=== PATIENT | female | born 1980 | race Caucasian/White ===

== ENCOUNTER 2017-01-08 07:19 | Day surgery (SDC) | payer OTHER ==
[2017-01-08] VITALS (17 sets, daily range): BP systolic 71–110; BP diastolic 44–68; PULSE 68–95; RESP 16–19; TEMP 98–98.5; O2SAT 97–98
[~2017-01-08] VITALS: Ht 165.1 cm; Wt 65.5 kg
[2017-01-08] MEDS ORDERED: METOPROLOL TARTRATE 25 MG TAB PO PRN (07:45)
[2017-01-08] MEDS ORDERED: LORazepam 1 MG TAB SL SCH (07:45)
[2017-01-08] MEDS ORDERED: SODIUM CHLORID 0.9% 500 ML IV PRN (07:45)
[2017-01-08] MEDS ORDERED: CHLORHEXIDINE GLUCONATE 2 % 1 PACK (2 CLOTHS) TOPICAL PRN (07:45)
[2017-01-08] MEDS ORDERED: POVIDONE IODINE 5% (ANTISEPSIS KIT) 4 APPLICATIONS EACH NARE PRN (07:45)
[2017-01-08] MEDS ORDERED: LACTATED RINGER'S 1000 ML IV PRN (07:45)
[2017-01-08] MEDS ORDERED: INSULIN HUMAN REGULAR 1,000 UNITS/10 ML VIAL SQ PRN (07:45)
[2017-01-08] MEDS: SODIUM CHLORID 0.9% 500 ML INJ 500 ML IV SCH (07:45)
[2017-01-08 08:15] LABS: AUTOMATED NEUTROPHIL # 3.6 TH/MM3 (1.8-7.7); BASOPHIL # 0.1 TH/MM3 (0-0.2); BASOPHIL % 1.1 % (0.0-2.0); EOSINOPHIL # 0.5 TH/MM3 (0-0.4); EOSINOPHIL % 7.2 % (0.0-4.0); HEMATOCRIT 36.4 % (35.0-46.0); HEMO FLAGS DIFF FINAL; LYMPH % 29.4 % (9.0-44.0); MEAN CORPUSCULAR HEMOGLOBIN 27.6 PG (27.0-34.0); MEAN CORPUSCULAR HGB CONC 32.8 % (32.0-36.0); MONO % 8.1 % (0.0-8.0); NEUT % 54.2 % (16.0-70.0); PLATELET COUNT 317 TH/MM3 (150-450); RED BLOOD COUNT 4.33 MIL/MM3 (4.00-5.30); RED CELL DISTRIBUTION WIDTH 12.5 % (11.6-17.2); WHITE BLOOD COUNT 6.7 TH/MM3 (4.0-11.0)
[2017-01-08] MEDS ORDERED: NORE1TAB57 PO (08:20)
[2017-01-08] MEDS ORDERED: ESCI10TA PO (08:20)
[2017-01-08] MEDS ORDERED: METO25TA6 PO (08:20)
[2017-01-08] MEDS ORDERED: CLON0.5T PO (08:20)
[2017-01-08 08:22] LABS: APTT (PATIENT) 27.1 SEC (24.3-30.1); INTERNATIONAL NORMALIZED RATIO 0.9 RATIO; PROTHROMBIN TIME - PATIENT 10.2 SEC (9.8-11.6)
[2017-01-08 08:29] LABS: BICARBONATE 26.7 MEQ/L (21.0-32.0); POTASSIUM 3.9 MEQ/L (3.5-5.1)
[2017-01-08 08:33] LABS: BETA HCG QUANT LESS THAN 1 MIU/ML (0-5)
[2017-01-08] MEDS ORDERED: ISOPROTERENOL HCL 1 MG/5 ML AMP ONE (09:07)
[2017-01-08] MEDS ORDERED: MIDAZOLAM HCL 2 MG/2 ML VIAL ONE (09:07)
[2017-01-08] MEDS ORDERED: HEPARIN-NS/PF INJ 1,000 ML ONE (09:20)
[2017-01-08] MEDS ORDERED: HEPARIN SODIUM - IV 10,000 UNITS/10 ML VIAL ONE (10:07)
[2017-01-08] MEDS ORDERED: PROTAMINE SULFATE 50 MG/5 ML VIAL ONE (11:25)
--- NOTE | 2017-01-08 11:50 | CATHPROC ---
[facility] HIS Report Study Information Study Number Admission Scheduled Start Study Start [id number] Jan 08 2017 7:19AM 01/08/2017 Jan 08 2017 9:04AM [facility] Electrophysiology Study Admit Source Facility Department Other [facility] - Teaching Fellow Physician and Clinical Staff Initial Radha Morales Dressmaking Teacher Liz Snow RCIS Other Anesthesia, ACADEMIC DEAN Recorder Jo Ann Thompson,RN Recorder Sara Caldera,BSRN Scrub Giovanni Huff,RT(R) Procedures Performed Procedure Location (Site) Vessel Name Ablation Procedure ICE CATHETER INSERT RA Atruim RF Ablation LT. ATRIUM LT. ATRIUM Equipment Time Dry Box Operator Description Size Mfg Part Number Used/Scraped BIOSENSE SCHAFFER CATHETER, CELSIUS, 4MM, C [id number] 10:14 FR 7 Used INC. TYPE QUAD *[id number] [employer]/ EP 10:04 KIT, TRANSDUCER / AFIB [id number] Used PACER COVER, TRANSDUCER CABLE 10:05 [employer] 612-113 Used ACUNAV 10:18 CORDIS/PACER SHEATH, FR10 CLARENCE 11CM FR 10 [id number] Used 11:18 CORDIS/PACER SHEATH, FR9 CLARENCE 11CM FR 9 [id number] Used [id number] 09:05 Planwise INDUSTRIES PACK, CCL CUSTOM * Used *[id number] 09:05 Planwise PACER CARO, LIMB * 2530 *[id number] Used [id number] 10:13 get2play MEDICAL SHEATH, FR4.5 PRELUDE 11CM FR 4.5 Used [id number] 10:07 NAMIC TUBING, HIGH PRESSURE 48" 48" Used *[id number] 10:08 NAMIC TUBING, HIGH PRESSURE 48" 48" Used *[id number] 09:05 RO MEDICAL BLANKET,WARM AIR CCL * Used *[id number] 09:07 [employer] MEDICAL CATHETER, JSN, QUAD FR 5 Used *[id number] [id number] 09:07 [employer] MEDICAL CATHETER, JSN, QUAD FR 5 Used *[id number] 196619 09:07 [employer] MEDICAL CATHETER, JSN, QUAD FR 5 Used *[id number] 09:07 [employer] MEDICAL CATHETER, JSN, QUAD FR 5 Used *[id number] 09:05 [facility] MEDICAL ELECTRODE KIT, SHANNON X SURFACE * [id number] Used [id number] 09:07 [employer] MEDICAL SHEATH, EPS, FR5 FAST CATH FR 5 Used *[id number] 09:07 [employer] MEDICAL SHEATH, EPS, FR5 FAST CATH FR 5 Used *[id number] 544759 09:07 [facility] MEDICAL SHEATH, EPS, FR5 FAST CATH FR 5 Used *[id number] 09:07 [employer] MEDICAL SHEATH, EPS, FR6 FAST CATH FR [address] [id number] Used 09:07 [facility] MEDICAL SHEATH, EPS, FR8 FAST CATH FR 8 [id number] Used SHEATH, FR8.5 STEERABLE SM 10:16 [facility] B[employer] MEDICAL 71CM [id number] Used 71CM CATHETER, ACUNAV FR10 ICE [id number] 10:03 FRANKI FR 10 Used (FRANKI) *[id number] [facility] PAD, ELECTROSURGICAL 09:05 * [id number] *[id number] Used SURGICAL GROUNDING (BLUE) History: Current Medications Medication Dosage/Unit Route Frequency Last Date/Time Taken LOPRESSOR History: Allergies Allergy Reaction cephalexin History: Symptoms/Diagnosis Selection Items Palpitations Labs Hgb (g/dl) Hct (%) RBC (MIL/MM3) WBC (l/cumm) Platelets (thousands) 11.60-17.00 35.00-51.00 4.00-5.90 4.00-11.00 150.00-450.00 11.9 36.4 4.3 6.7 317 Glucose (mg/dl) BUN (mg/dl) Creatinine (mg/dl) BUN:Creatinine (1:x) 74.00-106.00 7.00-18.00 0.50-1.30 10.00-20.00 83 15 0.9 16.7 Na (meq/l) K (meq/l) Cl (meq/l) CO2 (mmol/L) Ca (mg/dl) 136.00-145.00 3.50-5.10 98.00-107.00 21.00-32.00 8.50-10.10 142 3.9 106 26.7 8.8 INR (PTT:PT) 0.90-1.10 0.9 Medication Medication Total Dose (Bolus/Oral) Medication Total Dosage/Unit 1% XYLOCAINE 40 mL HEPARIN 6000 units PROTAMINE 20 mg Medications (Bolus/Oral) Medication Time Given Dosage/Unit Administered By Reason 1% XYLOCAINE 01/08/2017 9:41:57 AM 20 mL Radha Davila For pain 20 mL 1% XYLOCAINE given in lab by Radha Davila in Right Groin via Subcutaneous. Ordered by Mic Davila. Reason: For pain. 1% XYLOCAINE 01/08/2017 9:51:14 AM 20 mL Radha Davial As per physicians lili bal order 20 mL 1% XYLOCAINE given in lab by Radha Davila in Right Groin via Subcutaneous. Ordered by Mic Davila. Reason: As per physicians verbal order. HEPARIN 01/08/2017 10:21:03 AM 6000 units Anesthesia, ACADEMIC DEAN As per physicians ve rbal order 6000 units HEPARIN given in lab by Anesthesia, ACADEMIC DEAN in Right Antecubital via Peripheral IV. Ordered b y Radha Davila. Reason: As per physicians verbal order. PROTAMINE 01/08/2017 11:28:13 AM 20 mg Anesthesia, ACADEMIC DEAN As per physicians lili bal order 20 mg PROTAMINE given in lab by Anesthesia, ACADEMIC DEAN in Right Antecubital via Peripheral IV. Ordered by Radha Jasmine. Reason: As per physicians verbal order. Medication (Drip) Medication Time Given Dosage/Unit Concentration/Unit Diluent (ml) Solution ISUPREL 01/08/2017 11:03:32 AM 2 mcg/min 1 mg 250 NaCl .9 2 mcg/min ISUPREL given in lab by Anesthesia, ACADEMIC DEAN in Right Antecubital via Peripheral IV. Pump/Drip Flow = 30 ml/hr using NaCl .9 with a concentration of 1 mg in 250 ml. Ordered by Radha Davila. Reason: As per physicians verbal order. IV Solutions 01/08/2017 9:17:46 AM 0 mL (IV) NaCl .9 IV Solutions given in lab by Jo Ann Thompson RN in Left Antecubital via Peripheral IV. Pump/Drip Fl ow = 50 ml/hr using NaCl .9. Ordered by Radha Davila. Reason: As per physicians verbal order. IV Solutions 01/08/2017 9:18:10 AM 0 mL (IV) NaCl .9 IV Solutions given in lab by Jo Ann Thompson RN in Right Antecubital via Peripheral IV. Pump/Drip F low = 50 ml/hr using NaCl .9. Ordered by Radha Davila. Reason: As per physicians verbal order. Initial Case Assessment Cardiovascular HR NIBP 62 109/62 Edema Present Skin color Skin None Normal Warm Dry Neurological State Oriented to time-place- Alert Moves all extremities person Respiration - General Respiration Rate SpO2 (%) (B/min) 18 100 Final Case Assessment Cardiovascular HR NIBP Chest Pain 80 107/60 0 Edema Present Skin color Skin None Normal Warm Dry Neurological State Oriented to time-place- Alert Moves all extremities person Respiration - General Respiration Rate SpO2 (%) (B/min) 20 99 Chronological Log Time Study Chronological Log 9:09:47 Patient arrived via Bed. 9:09:50 Patient Name, D.O.B, / Armband Verified By R.N. 9:09:53 Consent signed by the physician and the patient and verified by the Teaching Fellow staff. 9:09:56 Pre-op and post- op instructions given; patient acknowledges understanding of instructions . Assessment: Initial Case, HR=62 BPM, JRVS=570/62 mmhg, Edema=None, Color=Normal, Skin = Warm, Dry 9:15:00 Neurological: State=Alert, Ox3, GOTTI Respiration: Resp=18 B/min, IdF6=672 % 9:16:27 Verbal Stimulation=2 Physical Stimulation=2 Airway=2 Respiration=2 TOTAL=10. (0=absent, 1=li mited, 2=present) 9:16:39 Anesthesia at bedside. Assumes care of patient. Gino ACADEMIC DEAN 9:17:02 Patient has been NPO for More than 6Hrs. 9:17:07 Skin Breakdown- none 9:17:14 Patient Warmer Placed on the Table. 9:17:17 Disposable Defibrillator Pads Placed On Patient. 9:17:20 Marcelino Prominences Protected 9:17:28 A # 20 IV was noted in the Antecubital (left). Grade = ~GRADE~ 9:17:38 A # 20 IV was noted in the Antecubital (right). Grade = ~GRADE~ IV Solutions given in lab by Jo Ann Thompson, SWAPNIL in Left Antecubital via Peripheral IV. Pump/Dr ip Flow = 50 ml/hr 9:17:46 using NaCl .9. Ordered by Radha Davila. Reason: As per physicians verbal order. IV Solutions given in lab by Jo Ann Thompson, SWAPNIL in Right Antecubital via Peripheral IV. Pump/D rip Flow = 50 ml/hr 9:18:10 using NaCl .9. Ordered by Radha Davila. Reason: As per physicians verbal order. 9:18:36 History and physical on the chart or being dictated. 9:19:56 Right groin prepped with 2% chlorhexidine, and with a 3 min. waiting time. 9:21:06 Left groin prepped with 2% chlorhexidine, and with a 3 min. waiting time. 9:35:53 MD notified ready. He responded. 9:36:26 Reference ECG taken 9:41:41 Immediate Presedation assesment performed by physician. Time Out. Correct patient, procedure, procedure equipment, site and side verified with physician present. Time 9:41:44 concurred by MD, individual staff and ACADEMIC DEAN. Time Out #2 - Consents verified, patient in correct position, all results are labled and display ed, safety precautions 9:41:46 taken, antibiotics administered. Time out concurred by MD, individual staff and ACADEMIC DEAN in procedur e 9:41:55 Case Start 20 mL 1% XYLOCAINE given in lab by Radha Davila in Right Groin via Subcutaneous. Ordered by Radha Flores. 9:41:57 Reason: For pain. 9:42:10 Vascular access was obtained in the Fem Vein (left). 9:42:15 Vascular access was obtained in the Fem Vein (left). 9:42:15 Vascular access was obtained in the Fem Vein (left). 9:42:24 A SHEATH, EPS, FR5 FAST CATH FR 5 was advanced into the Fem Vein (left) using the Percutaneo us technique. 9:42:36 A SHEATH, EPS, FR5 FAST CATH FR 5 was advanced into the Fem Vein (left) using the Percutaneo us technique. 9:42:37 A SHEATH, EPS, FR5 FAST CATH FR 5 was advanced into the Fem Vein (left) using the Percutaneo us technique. A CATHETER, JSN, QUAD FR 5 was advanced vis Fem Vein (left) and placed in the HIS. Placement was visually 9:42:44 confirmed under fluoroscopy. A CATHETER, JSN, QUAD FR 5 was advanced vis Fem Vein (left) and placed in the HRA. Placement was visually 9:43:28 confirmed under fluoroscopy. A CATHETER, JSN, QUAD FR 5 was advanced vis Fem Vein (left) and placed in the RVA. Placement was visually 9:43:41 confirmed under fluoroscopy. 20 mL 1% XYLOCAINE given in lab by Radha Davila in Right Groin via Subcutaneous. Ordered by Radha Flores. 9:51:14 Reason: As per physicians verbal order. 9:51:30 Vascular access was obtained in the Fem Vein (right). 9:51:32 Vascular access was obtained in the Fem Vein (right). 9:51:46 A SHEATH, EPS, FR6 FAST CATH FR 6 was advanced into the Fem Vein (right) using the Percutane ous technique. 9:51:56 A SHEATH, EPS, FR8 FAST CATH FR 8 was advanced into the Fem Vein (right) using the Percutane ous technique. A CATHETER, JSN, QUAD FR 5 was advanced vis Fem Vein (right) and placed in the CS. Placement was visually 9:52:07 confirmed under fluoroscopy. 10:01:10 EP study in progress. 10:14:41 Vascular access was obtained in the Fem Art (left). 10:15:04 A SHEATH, FR4.5 PRELUDE 11CM FR 4.5 was advanced into the Fem Art (left) using the Percutan eous technique. 10:17:59 A SHEATH, FR10 CLARENCE 11CM FR 10 was advanced into the Fem Vein (left) using the Percutaneo us technique. 10:19:24 CATHETER, ACUNAV FR10 ICE (FRANKI) FR 10 Was Postioned. 10:20:20 Mapping in progress. A SHEATH, FR8.5 STEERABLE SM 71CM 71CM was exchanged in the Fem Vein (right). This was necessar y in order for 10:20:42 catheter support. 6000 units HEPARIN given in lab by Anesthesia, ACADEMIC DEAN in Right Antecubital via Peripheral IV. Ord ered by Radha Davila. 10:21:03 Reason: As per physicians verbal order. 10:21:49 [place] needle inserted. 10:23:01 Transeptal A CATHETER, CELSIUS, 4MM, C TYPE QUAD FR 7 was advanced vis Fem Vein (right) and placed in the LA. Placement 10:25:06 was visually confirmed under fluoroscopy. 10:26:48 RF Ablation of the LT. ATRIUM with a CATHETER, CELSIUS, 4MM, C TYPE QUAD FR 7. 10:27:47 Activated Clotting Time Drawn 10:34:30 ACT (Normal Range 90-180) = 290 10:41:32 Ablation continues. 10:56:45 Activated Clotting Time Drawn 11:02:18 ACT (Normal Range 90-180) = 310 2 mcg/min ISUPREL given in lab by Anesthesia, ACADEMIC DEAN in Right Antecubital via Peripheral IV. Pump /Drip Flow = 30 ml/hr 11:03:32 using NaCl .9 with a concentration of 1 mg in 250 ml. Ordered by Radha Davila. Reason: As per physicians verbal order. 11:07:46 Ablation procedure performed: SVT. 11:08:35 EP Procedure was performed. 11:13:00 Isuprel gtt stopped. 11:23:52 Cine recording checked. 11:23:58 Bedside Report will be given. 11:24:05 Defibrillator and ground pads removed. Skin intact. 11:26:00 Catheter(s) removed without difficulty 11:26:10 No case complications noted. 11:26:12 Holding Area notified of successful intervention. 11:27:00 Sheath(s) left in place, secured, 0.9ns kvo connected and will be removed in Holding Area A SHEATH, FR8.5 STEERABLE SM 71CM 71CM was exchanged in the Fem Vein (right). This was necessar y in order to 11:27:00 achieve vascular hemostasis. 11:27:15 Sterile dressing applied to site 20 mg PROTAMINE given in lab by Anesthesia, ACADEMIC DEAN in Right Antecubital via Peripheral IV. Ordere d by Radha Davila. 11:28:13 Reason: As per physicians verbal order. Assessment: Final Case, HR=80 BPM, UBRQ=943/60 mmhg, Chest Pain=0, Edema=None, Color=Normal, Sk in = Warm, Dry 11:28:50 Neurological: State=Alert, Ox3, GOTTI Respiration: Resp=20 B/min, SpO2=99 % 11:32:34 Sterile dressing applied to site 11:33:52 Activated Clotting Time Drawn 11:36:43 ACT (Normal Range 90-180) = 137 11:40:59 Case End 11:45:29 CICU called. Spoke to Trudy 11:45:41 Bedside Report will be given. 11:47:45 Cine recording checked. 11:48:00 Patient moved to stretcher 11:48:52 Defibrillator and ground pads removed. Skin intact. End Study - Contrast Media Used In Study Contrast Total Opened (mL) Total Used (mL) Total Wasted (mL) Unspecified 0 0 0 End Study - Maximum Contrast Load Max Contrast Load (mL) 355.1 End Study - Radiation Exposure Fluoro Time (minutes) 8.1 End Study - Patient Disposition Complications Transferred To Interventional Outcome No Telemetry Bed successful
[2017-01-08] MEDS ORDERED: SODIUM CHLOR 0.9% 250 ML INJ 250 ML IV PRN (12:00)
[2017-01-08] MEDS ORDERED: LORazepam 2 MG/ML VIAL IV PRN (12:00)
[2017-01-08] MEDS ORDERED: BACITRACIN OINT 0.9 GM PKT TOP ONE (12:00)
[2017-01-08] MEDS ORDERED: LIDOCAINE HCL 1% 50 ML VIAL INFIL PRN (12:00)
[2017-01-08] MEDS ORDERED: ATROPINE SULFATE 1 MG/ML VIAL IV PRN (12:00)
[2017-01-08] MEDS ORDERED: METOCLOPRAMIDE HCL 10 MG/2 ML VIAL IV PRN (12:00)
[2017-01-08] MEDS ORDERED: ONDANSETRON HCL 4 MG/2 ML VIAL IV PRN (12:00)
--- NOTE | 2017-01-08 12:25 | MA ---
cc: MAREK MALONE M.D. DATE 01/08/2017 PROCEDURE PERFORMED Electrophysiology study, CS cannulation, 3-D mapping, transeptal approach, right and left heart catheterization, radiofrequency ablation of A-V reentrant tachycardia, left-sided accessory pathway, intracardiac echo, repeat electrophysiology study on Isuprel infusion. INDICATIONS FOR PROCEDURE Ms. Gomez is a 36-year-old female with recurrent episodes of supraventricular tachyarrhythmia, episodes of emergency room visits, very symptomatic, admitted for electrophysiology study and ablation. The risks, the nature and the benefit of the procedure are clearly stated to her. The risks include pneumothorax, cardiac perforation, stroke and even . She understood and agreed to proceed. PROCEDURE After written informed consent was obtained, the patient was brought to the EP Lab where she was prepped and draped in the usual sterile fashion. Conscious sedation was initiated and maintained throughout the procedure by the anesthesiologist. Once sedation was verified, the right and left inguinal area was anesthetized with 2% Xylocaine. Using modified Seldinger technique, the left femoral vein was cannulated on three occasions. Three guidewires were advanced. Over the wire, three 5-Swiss Hemaquets were advanced. Then the right femoral vein was cannulated on two occasions and two guidewire were advanced over the wire. A 6 and an 8-Swiss Hemaquet were advanced. Then under fluoroscopic guidance through the 5 and 6-Swiss Hemaquet, four 5-Swiss Peng curved quadripolar electrophysiology catheters were advanced and placed on the His, upper right atrium, coronary sinus and right ventricular apex. Basic interval was measured. At that point they were within normal limits. The patient went spontaneously into supraventricular tachyarrhythmia with intracardiac characteristics of AV reentrant tachycardia. VA time was around 170 milliseconds. It was pace terminated. Then ventricular pacing protocol was performed. It was eccentric in activation. At that point I decided to proceed with left-sided approach of the pathway. The left femoral artery was cannulated on one occasion and one guidewire was advanced over the wire. A 4-Swiss Hemaquet was advanced. Then the left femoral vein was cannulated on one occasion and a 10-Swiss Hemaquet was advanced. To the 10-Swiss Hemaquet, a FuGen Solutionster AcuNav intracardiac echo catheter was advanced and placed at the right atrium. Multiple views were obtained. There is no pericardial effusion. Pulmonary vein was seen, atrial septal visualized. Then the 8-Swiss Hemaquet in the right femoral vein was exchanged for an Agilis transseptal sheath that was placed all the way to the superior vena cava. Through this sheath a Temperance needle was advanced. The patient already received 6000 units of heparin. The goal is to keep an ACT around 300 during the procedure. Then the sheath, the dilator and the needle were pulled back progressively until foci engaged. Once engaged the needle was advanced. RF was delivered for 2 seconds. I was able to cross into the left atrium. Once the needle crossed, the dilator was advanced. The dilator crossed and the sheath was advanced. The dilator and the needle were removed. Intracardiac echo showed the sheath in good position. Then through the sheath I did advance a FuGen Solutionster C-curved 4-mm mapping and radiofrequency ablation catheter. Using [employer] endocardial solution mapping system a three-dimensional configuration of the left atrium was obtained. Then the patient went into a supraventricular tachycardia. The shortest VA time was measured. After multiple mapping and in after full ablation, I did localize early activation at 12 o'clock in the mitral valve. Radiofrequency energy was delivered. The patient went into sinus rhythm. Further burn was delivered in the area. Then atrial pacing protocol was repeated again. No tachyarrhythmia was induced. I was able to reach ERP of the node around 600/280 milliseconds. Then ventricular pacing protocol was performed; this time it was concentric. Then Isuprel was infused. Atrial pacing protocol then ventricular pacing protocol was repeated again; no tachyarrhythmia was induced. VA conduction was concentric. Pos-Isuprel no tachyarrhythmia was induced. At that point the procedure was complete. All catheters were removed. Intracardiac echo showed no pericardial effusion. The pulmonary vein was visualized. The patient is going to be transferred to the recovery room. No incident reported. The patient tolerated the procedure. Blood loss minimal. That was a very complex and difficult case. 1. ELECTROCARDIOGRAM: At baseline the patient was in sinus. Postprocedure the patient is in sinus rhythm. 2. BASIC INTERVAL: Base cycle length was around 840, AH was around 90 and HV was around 38 milliseconds. 3. ATRIAL PACING PROTOCOL: During atrial pacing protocol tachyarrhythmia was induced. 4. VENTRICULAR PACING PROTOCOL: There was VA conduction. It was concentric. Tachyarrhythmia was induced during ventricular pacing protocol. 5. TACHYARRHYTHMIA: AV reentrant tachycardia was mapped. Left-sided accessory pathway was ablated. Ablation was successful. CONCLUSION 1. Successful electrophysiology study, mapping and radiofrequency ablation of AV reentrant tachycardia. 2. Intracardiac echo, repeat electrophysiology study on Isuprel infusion. RECOMMENDATIONS The patient is going to be transferred to the Telemetry Unit. He will be observed and when stable can be discharged home. MD FLYNN Del Cid/SSB /11:47 AM /12:00 PM
[2017-01-08] MEDS ORDERED: oxyCODONE/ACETAMINOPHEN 5 MG/325 MG TAB PO PRN (13:00)
--- NOTE | 2017-01-08 13:10 | EKG ---
Date Performed: 01/08/2017 Time Performed: 08:08:22 PTAGE: 36 years EKG: Sinus rhythm . Septal T wave changes are nonspecific Borderline ECG NO PREVIOUS TRACING DOCTOR: Lillie Pierce Interpretating Date/Time 01/08/2017 13:08:12
[2017-01-08] MEDS: oxyCODONE/ACETAMINOPHEN 5 MG/325 MG TAB PO PRN ×2 (16:35→21:15)
[2017-01-08] MEDS: clonazePAM 0.5 MG TAB PO SCH (21:00)
[2017-01-09] VITALS (9 sets, daily range): BP systolic 96–99; BP diastolic 53–58; PULSE 67–80; RESP 17; TEMP 98.3–98.8; O2SAT 98–99
[2017-01-09] MEDS: SODIUM CHLORID 0.9% 500 ML INJ 500 ML IV SCH (00:25)
[2017-01-09] MEDS: oxyCODONE/ACETAMINOPHEN 5 MG/325 MG TAB PO PRN (03:19)
[2017-01-09 07:11] LABS: APTT (PATIENT) 26.6 SEC (24.3-30.1); PROTHROMBIN TIME - PATIENT 10.8 SEC (9.8-11.6)
[2017-01-09] MEDS: clonazePAM 0.5 MG TAB PO SCH (07:58)
--- NOTE | 2017-01-09 08:48 | PD.CARD.PN ---
Subjective Subjective Remarks Feels okay. Objective Medications Current Medications Medications (Trade) Dose Ordered Sig/Gypsy Route Start Time Stop Time Status Last Admin Sodium Chloride 500 ml @ 30 mls/hr [id number] IV 01/08/17 07:45 (Ativan) 1 mg FORESTRY EXTENSION SPECIALIST SL 01/08/17 07:45 01/11/17 07:44 Lactated Ringer's 1,000 ml @ 30 mls/hr Q24H PRN IV 01/08/17 07:45 01/11/17 07:44 Sodium Chloride 500 ml @ 30 mls/hr [id number] PRN IV 01/08/17 07:45 01/11/17 07:44 (Lopressor) 25 mg FORESTRY EXTENSION SPECIALIST PRN PO 01/08/17 07:45 01/11/17 07:44 (Betadine 5% Antisepsis Kit) 1 applic FORESTRY EXTENSION SPECIALIST PRN EACH NARE 01/08/17 07:45 01/11/17 07:44 (Chlorhexidine 2% Cloth) 3 pack FORESTRY EXTENSION SPECIALIST PRN TOPICAL 01/08/17 07:45 01/11/17 07:44 (NovoLIN R INJ) See Protocol Table ... FORESTRY EXTENSION SPECIALIST PRN SQ 01/08/17 07:45 01/11/17 07:44 (Percocet 5-325 Mg) 1 tab Q4H PRN PO 01/08/17 13:00 01/09/17 03:19 (Percocet 5-325 Mg) 2 tab Q4H PRN PO 01/08/17 13:00 01/08/17 12:35 (Ativan Inj) 0.5 mg UNSCH PRN IV 01/08/17 12:00 01/09/17 11:59 (Atropine Inj) 0.5 mg UNSCH PRN IV 01/08/17 12:00 Sodium Chloride 250 ml @ 500 mls/hr ONCE PRN IV 01/08/17 12:00 01/09/17 11:59 01/08/17 13:48 (Reglan Inj) 10 mg Q4H PRN IV 01/08/17 12:00 (Zofran Inj) 4 mg Q4H PRN IV 01/08/17 12:00 (Xylocaine 1% Inj (50 ml)) 10 ml UNSCH PRN INFIL 01/08/17 12:00 01/09/17 11:59 (KlonoPIN) 0.5 mg BID PO 01/08/17 21:00 (Lexapro) 10 mg DAILY PO 01/09/17 09:00 Patient Own Medication PT OWN MED: LOEST... DAILY PO 01/09/17 09:00 Future Hold Vital Signs / I&O Vital Signs Date Time Temp Pulse Resp B/P (MAP) Pulse Ox O2 Delivery O2 Flow Rate FiO2 01/09/17 07:47 98.8 80 17 99/58 (72) 98 01/09/17 06:14 70 01/09/17 05:07 68 01/09/17 04:16 68 01/09/17 03:58 69 01/09/17 03:21 98.3 80 17 96/53 (67) 99 01/09/17 02:17 67 01/09/17 01:37 68 01/09/17 00:48 70 01/08/17 23:46 98.4 82 18 99/53 (68) 98 01/08/17 23:00 70 01/08/17 22:00 78 01/08/17 21:00 76 01/08/17 20:00 80 01/08/17 19:30 98.5 81 19 109/52 (71) 98 01/08/17 19:00 84 01/08/17 18:00 82 01/08/17 17:59 18 01/08/17 17:09 95 01/08/17 16:43 78 01/08/17 15:15 98.2 81 16 99/58 (72) 98 01/08/17 15:04 84 01/08/17 14:53 81 01/08/17 13:27 98.3 95 16 71/44 (53) 97 01/08/17 13:00 70 01/08/17 12:20 80 I/O 01/08/17 01/08/17 01/08/17 01/09/17 01/09/17 01/09/17 07:00 15:00 23:00 07:00 15:00 23:00 Intake Total 250 ml 480 ml 450 ml Output Total 300 ml 750 ml Balance 250 ml 180 ml -300 ml Intake Oral 480 ml 450 ml IV Total 250 ml Output Urine Total 300 ml 750 ml Physical Exam GENERAL: Well-nourished, well-developed patient. SKIN: Warm and dry. Groin site soft with no bruising or bleeding. HEAD: Normocephalic. EYES: No scleral icterus. No injection or drainage. NECK: Supple, trachea midline. No JVD or lymphadenopathy. CARDIOVASCULAR: Regular rate and rhythm without murmurs, gallops, or rubs. RESPIRATORY: Breath sounds equal bilaterally. No accessory muscle use. GASTROINTESTINAL: Abdomen soft, non-tender, nondistended. EXTREMITIES: No cyanosis, or edema. NEUROLOGICAL: Awake, alert, and oriented x 3. Non-focal. Laboratory Laboratory Tests Test 01/09/17 06:10 Prothrombin Time 10.8 SEC Prothromb Time International Ratio 1.0 RATIO Activated Partial Thromboplast Time 26.6 SEC Assessment and Plan Problem List: (1) SVT (supraventricular tachycardia) ICD Codes: I47.1 - Supraventricular tachycardia Status: Acute Plan: Normal sinus rhythm on telemetry overnight status post SVT ablation. Stable for discharge home. (2) S/P ablation of accessory bypass tract ICD Codes: Z98.890 - Other specified postprocedural states Status: Resolved Plan: Normal sinus rhythm overnight on telemetry. Groin sites stable. Discharge home, follow-up with Dr. Davila in 3 weeks. Contact office for any questions or concerns. Discussed Condition With Discussed with patient, RN, Dr. Davila. Paris Salcido Jan 09, 2017 08:48
[2017-01-09] MEDS ORDERED: ETHINYL ESTRADIOL PO SCH (09:00)
[2017-01-09] MEDS ORDERED: NORETHINDRONE PO SCH (09:00)
[2017-01-09] MEDS ORDERED: ESCITALOPRAM OXALATE 10 MG TAB PO SCH (09:00)
--- NOTE | 2017-01-09 17:13 | EKG ---
Date Performed: 01/09/2017 Time Performed: 03:13:24 PTAGE: 36 years EKG: Sinus rhythm Since previous tracing, no significant change noted Normal ECG PREVIOUS TRACING : 01/08/2017 08.08 DOCTOR: Pia Cantrell Interpretating Date/Time 01/09/2017 17:06:48
== END 2017-01-09 11:15 | disposition home or self-care (01) ==
LOC: HDIC 07:19 → HDOC 07:19 → HCIN 11:50 → HDOC 01-09 11:15
PROVIDERS: ATTEND Internal Medicine Interventional Cardiology
DX: I47.1 Supraventricular tachycardia (principal); I45.6 Pre-excitation syndrome
CPT/HCPCS: 80048; 84702; 85002; 85025; 85610; 85730; 86850; 86900; 86901; 93005; 93613; 93623; 93653; 93662; C1730; C1731; C1732; C1759; C1766; C2630; J1644; J2250; J2720; J3010; J7050

== ENCOUNTER 2017-02-01 15:26 | Emergency (ER) | payer OTHER ==
[~2017-02-01] VITALS: Ht 165.1 cm; Wt 60.0 kg
[~2017-02-01 15:26] MED LIST: CLON0.5T PO; ESCI10TA PO; NORE1TAB57 PO
[2017-02-01 15:29] VITALS: BP 116/73; PULSE 95; RESP 14; TEMP 98.4; O2SAT 100
--- NOTE | 2017-02-01 15:34 | PD ---
Physical Exam Time Seen by Provider: 15:33 Narrative 36-year-old female post cardiac ablation from January 08 with complaint of heaviness in her arms and legs, shakiness, and feeling like she is going to faint that started today. Denies anticoagulant therapy. Denies chest pain or shortness of breath. Patient seen in triage. Vital signs reviewed. Patient awaiting bed placement. Data Data Last Documented VS Vital Signs Date Time Temp Pulse Resp B/P (MAP) Pulse Ox O2 Delivery O2 Flow Rate FiO2 02/01/17 15:29 98.4 95 14 116/73 (87) 100 MDM Supervised Visit with HARSH: Regla Yañez Feb 01, 2017 15:34
[2017-02-01] MEDS ORDERED: SODIUM CHLORIDE 0.9% FLUSH 10 ML FLUSH IVF PRN (15:45)
[2017-02-01 15:55] VITALS: O2SAT 100
--- NOTE | 2017-02-01 16:04 | PD ---
HPI Chief Complaint: Cardiac Complaint Time Seen by Provider: 15:58 Travel History International Travel<30 days: No Contact w/Intl Traveler<30days: No Traveled to known affect area: No History of Present Illness HPI 36-year-old female patient with history of WPW disorder and SVTs, status post ablation done several months ago by Dr. Davila, presents to the ER today because of generalized fatigue, feeling disoriented, starting this morning at work. She denies any chest pains, palpitations, shortness of breath, nausea, vomiting , fevers, diarrhea, or any other symptoms. She was told to come in by her physician because of the way she was feeling and her prior history. She denies any new medications. She denies being more stressed out than usual. Modifying Factors: None Associated Signs & Symptoms: General weakness, disorientation Risk Factors: WPW PFSH Past Medical History Cancer: No Cardiovascular Problems: Yes (ABLATION 12/29) Genitourinary: No Musculoskeletal: No Neurologic: No Psychiatric: No Reproductive: No Respiratory: No Sickle Cell Disease: No Past Surgical History AICD: No Arteriovenous Shunt: No Insulin Pump: No Joint Replacement: No Pacemaker: No Social History Tobacco Use: No Substance Use: No Allergies-Medications (Allergen,Severity, Reaction): Coded Allergies: cephalexin (Verified Allergy, Unknown, 02/01/17) Reported Meds & Prescriptions Reported Meds & Active Scripts Active Reported Loestrin 1.5/30 (Norethindrone-Ethinyl Estradiol) 1.5-30 Mg-Mcg Tab 1 Tab PO DAILY Escitalopram (Escitalopram Oxalate) 10 Mg Tab 10 Mg PO DAILY Clonazepam 0.5 Mg Tab 0.5 Mg PO BID Review of Systems Except as stated in HPI: all other systems reviewed are Neg Physical Exam Narrative GENERAL: Well-developed young white female patient currently in mild distress. Awake and oriented 3. In mild distress. SKIN: Focused skin assessment warm/dry. HEAD: Atraumatic. Normocephalic. EYES: Pupils equal and round. No scleral icterus. No injection or drainage. ENT: No nasal bleeding or discharge. Mucous membranes pink and moist. NECK: Trachea midline. No JVD. CARDIOVASCULAR: Regular rate and rhythm. No murmur appreciated. Pulses are present and equal bilaterally. RESPIRATORY: No accessory muscle use. Clear to auscultation. Breath sounds equal bilaterally. GASTROINTESTINAL: Abdomen soft, non-tender, nondistended. Hepatic and splenic margins not palpable. MUSCULOSKELETAL: No obvious deformities. No clubbing. No cyanosis. No edema. NEUROLOGICAL: Awake and alert. No obvious cranial nerve deficits. Motor grossly within normal limits. Normal speech. PSYCHIATRIC: Appropriate mood and affect; insight and judgment normal. Data Data Last Documented VS Vital Signs Date Time Temp Pulse Resp B/P (MAP) Pulse Ox O2 Delivery O2 Flow Rate FiO2 02/01/17 15:55 100 Room Air 02/01/17 15:29 98.4 95 14 Orders Orders Electrocardiogram (02/01/17 15:36) Complete Blood Count With Diff (02/01/17 15:36) Comprehensive Metabolic Panel (02/01/17 15:36) Magnesium (Mg) (02/01/17 15:36) Ckmb (Isoenzyme) Profile (02/01/17 15:36) Troponin I (02/01/17 15:36) Act Partial Throm Time (Ptt) (02/01/17 15:36) Prothrombin Time / Inr (Pt) (02/01/17 15:36) Chest, Single Ap (02/01/17 15:36) Ecg Monitoring (02/01/17 15:36) Iv Access Insert/Monitor (02/01/17 15:36) Oximetry (02/01/17 15:36) Sodium Chloride 0.9% Flush (Ns Flush) (02/01/17 15:45) Ed Urine Pregnancytest Poc (02/01/17 15:58) Labs Laboratory Tests Test 02/01/17 16:10 White Blood Count 9.5 TH/MM3 Red Blood Count 4.02 MIL/MM3 Hemoglobin 11.0 GM/DL Hematocrit 33.9 % Mean Corpuscular Volume 84.2 FL Mean Corpuscular Hemoglobin 27.4 PG Mean Corpuscular Hemoglobin Concent 32.5 % Red Cell Distribution Width 12.9 % Platelet Count 331 TH/MM3 Mean Platelet Volume 7.8 FL Neutrophils (%) (Auto) 65.6 % Lymphocytes (%) (Auto) 26.5 % Monocytes (%) (Auto) 5.1 % Eosinophils (%) (Auto) 2.3 % Basophils (%) (Auto) 0.5 % Neutrophils # (Auto) 6.2 TH/MM3 Lymphocytes # (Auto) 2.5 TH/MM3 Monocytes # (Auto) 0.5 TH/MM3 Eosinophils # (Auto) 0.2 TH/MM3 Basophils # (Auto) 0.0 TH/MM3 CBC Comment DIFF FINAL Differential Comment Prothrombin Time 10.4 SEC Prothromb Time International Ratio 0.9 RATIO Activated Partial Thromboplast Time 26.1 SEC Blood Urea Nitrogen 18 MG/DL Creatinine 0.74 MG/DL Random Glucose 88 MG/DL Total Protein 6.9 GM/DL Albumin 3.7 GM/DL Calcium Level 8.9 MG/DL Magnesium Level 2.1 MG/DL Alkaline Phosphatase 42 U/L Aspartate Amino Transf (AST/SGOT) 17 U/L Alanine Aminotransferase (ALT/SGPT) 21 U/L Total Bilirubin 0.3 MG/DL Sodium Level 139 MEQ/L Potassium Level 3.7 MEQ/L Chloride Level 106 MEQ/L Carbon Dioxide Level 27.2 MEQ/L Anion Gap 6 MEQ/L Estimat Glomerular Filtration Rate 89 ML/MIN Total Creatine Kinase 95 U/L Troponin I LESS THAN 0.02 NG/ML MDM Medical Decision Making Medical Screen Exam Complete: Yes Emergency Medical Condition: Yes Medical Record Reviewed: Yes Interpretation(s) EKG shows NSR, no ST elevation or depression, and no arrhythmias. No significant T-wave inversions. Laboratory Tests Test 02/01/17 16:10 Hemoglobin 11.0 GM/DL (11.6-15.3) Hematocrit 33.9 % (35.0-46.0) Alkaline Phosphatase 42 U/L (45-117) Troponin I LESS THAN 0.02 NG/ML Last 24 hours Impressions Chest X-Ray 02/01/17 1536 Signed Impressions: Service Date/Time: Wednesday, February 01, 2017 15:57 - CONCLUSION: Normal examination. Ashok Menezes MD Differential Diagnosis General fatigue, disorientation: Dysrhythmias versus dehydration versus metabolic issues versus anxiety Narrative Course EKG did not show dysrhythmias. Vital signs are stable. Lab work did not show any signs of significant issues. Patient has no focal neurological deficits. 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 Return for worsening in symptoms as necessary. The plan has been discussed with her and she states understanding. Diagnosis Primary Impression: General weakness Disposition: DISCHARGE HOME Condition: Stable Johnny Hernandez MD Feb 01, 2017 16:04
--- NOTE | 2017-02-01 16:22 | RADRPT ---
EXAM DATE/TIME: 02/01/2017 15:57 [facility] COMPARISON: No previous studies available for comparison. INDICATIONS : Chest discomfort, irregular heart rate today MEDICAL HISTORY : None. SURGICAL HISTORY : Cardiac ablation ENCOUNTER: Initial ACUITY: 1 day PAIN SCORE: 0/10 LOCATION: Bilateral chest FINDINGS: A single view of the chest demonstrates the lungs to be symmetrically aerated without evidence of mas s, infiltrate or effusion. The cardiomediastinal contours are unremarkable. Osseous structures are intact. CONCLUSION: Normal examination. Ashok Meenzes MD on February 01, 2017 at 16:20 Board Certified Radiologist. This report was verified electronically.
[2017-02-01 16:33] LABS: AUTOMATED NEUTROPHIL # 6.2 TH/MM3 (1.8-7.7); BASOPHIL % 0.5 % (0.0-2.0); EOSINOPHIL # 0.2 TH/MM3 (0-0.4); EOSINOPHIL % 2.3 % (0.0-4.0); HEMATOCRIT 33.9 % (35.0-46.0); HEMO FLAGS DIFF FINAL; LYMPH % 26.5 % (9.0-44.0); LYMPHOCYTE # 2.5 TH/MM3 (1.0-4.8); MEAN CELL VOLUME 84.2 FL (80.0-100.0); MEAN CORPUSCULAR HEMOGLOBIN 27.4 PG (27.0-34.0); MEAN CORPUSCULAR HGB CONC 32.5 % (32.0-36.0); MONO % 5.1 % (0.0-8.0); NEUT % 65.6 % (16.0-70.0); PLATELET COUNT 331 TH/MM3 (150-450); RED BLOOD COUNT 4.02 MIL/MM3 (4.00-5.30); RED CELL DISTRIBUTION WIDTH 12.9 % (11.6-17.2); WHITE BLOOD COUNT 9.5 TH/MM3 (4.0-11.0)
[2017-02-01 16:42] LABS: APTT (PATIENT) 26.1 SEC (24.3-30.1); INTERNATIONAL NORMALIZED RATIO 0.9 RATIO; PROTHROMBIN TIME - PATIENT 10.4 SEC (9.8-11.6)
[2017-02-01 16:54] LABS: ANION GAP 6 MEQ/L (5-15); AST (GOT) 17 U/L (15-37); BICARBONATE 27.2 MEQ/L (21.0-32.0); BLOOD UREA NITROGEN 18 MG/DL (7-18); CHLORIDE 106 MEQ/L (98-107); GLOMERULAR FILTRATION RATE 89 ML/MIN (>89); MAGNESIUM 2.1 MG/DL (1.5-2.5); POTASSIUM 3.7 MEQ/L (3.5-5.1); SODIUM (NA) 139 MEQ/L (136-145)
[2017-02-01 17:01] LABS: ALKALINE PHOSPHATASE 42 U/L (45-117); ALT (GPT) 21 U/L (10-53); CREATINE KINASE 95 U/L (26-192); TOTAL BILIRUBIN ADULT 0.3 MG/DL (0.2-1.0)
--- NOTE | 2017-02-02 15:55 | EKG ---
Date Performed: 02/01/2017 Time Performed: 15:47:36 PTAGE: 36 years EKG: Sinus rhythm Compared to prior tracing no significant change NORMAL ECG PREVIOUS TRACING : 01/09/2017 03.13 DOCTOR: Dima Mcdonald Interpretating Date/Time 02/02/2017 15:54:54
== END 2017-02-01 17:33 | disposition home or self-care (01) ==
LOC: NEPE 15:26
DX: R53.83 Other fatigue (principal)
CPT/HCPCS: 71010; 80053; 82550; 83735; 84484; 84703; 85025; 85610; 85730; 93005; 99285

== ENCOUNTER 2017-02-13 04:24 | Emergency (ER) | payer OTHER ==
[~2017-02-13] VITALS: Ht 157.5 cm; Wt 60.0 kg
[2017-02-13] MEDS ORDERED: ADENOSINE IV SOLN 3 MG/ML 2 ML VIAL ONE ×2 (04:31→04:37)
[2017-02-13 04:40] VITALS: BP 129/57; PULSE 205; RESP 18; TEMP 98.2; O2SAT 100
[2017-02-13] MEDS ORDERED: ADENOSINE IV SOLN 3 MG/ML 2 ML VIAL IV PUSH ONE (04:45)
[2017-02-13 04:52] VITALS: BP 129/57; PULSE 79; RESP 16; RESP 18; O2SAT 100
[2017-02-13 05:03] LABS: AUTOMATED NEUTROPHIL # 4.1 TH/MM3 (1.8-7.7); BASOPHIL # 0.1 TH/MM3 (0-0.2); BASOPHIL % 0.7 % (0.0-2.0); EOSINOPHIL # 0.5 TH/MM3 (0-0.4); EOSINOPHIL % 5.2 % (0.0-4.0); HEMATOCRIT 37.2 % (35.0-46.0); HEMO FLAGS DIFF FINAL; LYMPH % 44.6 % (9.0-44.0); LYMPHOCYTE # 4.4 TH/MM3 (1.0-4.8); MEAN CELL VOLUME 84.7 FL (80.0-100.0); MEAN CORPUSCULAR HEMOGLOBIN 28.5 PG (27.0-34.0); MEAN CORPUSCULAR HGB CONC 33.6 % (32.0-36.0); MONO % 7.4 % (0.0-8.0); NEUT % 42.1 % (16.0-70.0); PLATELET COUNT 334 TH/MM3 (150-450); RED BLOOD COUNT 4.39 MIL/MM3 (4.00-5.30); RED CELL DISTRIBUTION WIDTH 12.9 % (11.6-17.2); WHITE BLOOD COUNT 9.8 TH/MM3 (4.0-11.0)
[2017-02-13 05:19] LABS: ANION GAP 7 MEQ/L (5-15); AST (GOT) 13 U/L (15-37); BICARBONATE 27.5 MEQ/L (21.0-32.0); BLOOD UREA NITROGEN 18 MG/DL (7-18); CHLORIDE 107 MEQ/L (98-107); GLOMERULAR FILTRATION RATE 70 ML/MIN (>89); MAGNESIUM 1.9 MG/DL (1.5-2.5); POTASSIUM 4.1 MEQ/L (3.5-5.1); SODIUM (NA) 141 MEQ/L (136-145)
[2017-02-13 05:20] LABS: ALT (GPT) 21 U/L (10-53)
[2017-02-13 05:22] LABS: ALKALINE PHOSPHATASE 50 U/L (45-117); TOTAL BILIRUBIN ADULT 0.3 MG/DL (0.2-1.0)
--- NOTE | 2017-02-13 05:45 | PD ---
HPI Chief Complaint: Cardiac Complaint Time Seen by Provider: 04:29 Travel History International Travel<30 days: No Contact w/Intl Traveler<30days: No Traveled to known affect area: No History of Present Illness HPI The patient is a 36 year old female who presents to the [facility] emergency department with a history of palpitations that she reports noticing when she awakened at 3:19 AM. She reports that this has happened one time in the past on December 02. She reports that she follow-up with Dr. Davila and on January 08 the patient underwent cardiac ablation procedure. The patient reports feeling short of breath when she has an episode of SVT. She reports having a tightening sensation in her chest. Otherwise all review of systems, the patient denies any recent fevers, cough, congestion, neck pain, abdominal pain, vomiting, diarrhea, urinary symptoms, or neurologic symptoms. PFSH Past Medical History Narrative Medical The patient's past medical history is significant for back pain, anxiety disorder, SVT. Heart Rhythm Problems: Yes (svt) Cancer: No Cardiovascular Problems: Yes (ABLATION 12/29) Gastrointestinal Disorders: Yes (Possible IBS/ no issues controlled with diet) Genitourinary: No Musculoskeletal: No Neurologic: No Psychiatric: No Reproductive: No Respiratory: No Sickle Cell Disease: No Tetanus Vaccination: Unknown Influenza Vaccination: No ?: Not LMP: now Past Surgical History Narrative Surgical The patient's past surgical history is significant for cardiac ablation. AICD: No Arteriovenous Shunt: No Cardiac Surgery: Yes (cardiac ablation) Insulin Pump: No Joint Replacement: No Pacemaker: No Social History Alcohol Use: Yes (2-3 glasses of wine 3-4 times a week) Tobacco Use: No Substance Use: No Allergies-Medications (Allergen,Severity, Reaction): Coded Allergies: cephalexin (Verified Allergy, Unknown, 02/01/17) Reported Meds & Prescriptions Reported Meds & Active Scripts Active Reported Loestrin 1.5/30 (Norethindrone-Ethinyl Estradiol) 1.5-30 Mg-Mcg Tab 1 Tab PO DAILY Escitalopram (Escitalopram Oxalate) 10 Mg Tab 10 Mg PO DAILY Clonazepam 0.5 Mg Tab 0.5 Mg PO BID Review of Systems Except as stated in HPI: all other systems reviewed are Neg General / Constitutional: No: Fever Eyes: No: Visual changes HENT: No: Headaches Cardiovascular: Positive: Chest Pain or Discomfort (tightening sensation), Palpitations, Tachycardia Respiratory: Positive: Shortness of Breath Gastrointestinal: No: Abdominal Pain Genitourinary: No: Dysuria Musculoskeletal: No: Pain Skin: No Rash Neurologic: No: Weakness, Focal Abnormalities, Change in Mentation, Slurred Speech, Sensory Disturbance Psychiatric: No: Depression Endocrine: No: Polydipsia Hematologic/Lymphatic: No: Easy Bruising Physical Exam Narrative General: The patient is a well-developed well-nourished who is anxious appearing on arrival, intermittently tearful. Head and Neck exam: Head is normocephalic atraumatic. Eyes: EOMI, pupils are equal round and reactive to light. Nose: Midline septum with pink mucous membranes Mouth: Dentition unremarkable. Moist mucus membranes. Posterior oropharynx is not erythematous. No tonsillar hypertrophy. Uvula midline. Airway patent. Neck: No palpable lymphadenopathy. No nuchal rigidity. No thyromegaly. Cardiovascular: Regular sounding tachycardia with a rate in the 200s without murmurs, gallops, or rubs. Lungs: Clear to auscultation bilaterally. No wheezes, rhonchi, or rales. Abdomen: Soft, without tenderness to palpation in all 4 quadrants of the abdomen. No guarding, rebound, or rigidity. Normal bowel sounds are audible. No tenderness on palpation of McBurney's point. Negative Isidro sign. Extremities: No clubbing, cyanosis, or edema. 2+ pulses in all 4 extremities. No calf tenderness on palpation. Back: No costovertebral angle tenderness to palpation. Neurologic Exam: Grossly nonfocal. Skin Exam: No rash noted. Intact skin that is warm and dry. Data Data Last Documented VS Vital Signs Date Time Temp Pulse Resp B/P (MAP) Pulse Ox O2 Delivery O2 Flow Rate FiO2 02/13/17 04:52 18 02/13/17 04:52 79 129/57 (81) 100 Nasal Cannula 2.00 02/13/17 04:40 98.2 Orders Orders Adenosine Inj (Adenocard Inj) (02/13/17 04:31) Adenosine Inj (Adenocard Inj) (02/13/17 04:37) Electrocardiogram (02/13/17 04:44) Complete Blood Count With Diff (02/13/17 04:44) Comprehensive Metabolic Panel (02/13/17 04:44) Magnesium (Mg) (02/13/17 04:44) Iv Access Insert/Monitor (02/13/17 04:44) Ecg Monitoring (02/13/17 04:44) Oximetry (02/13/17 04:44) Adenosine Inj (Adenocard Inj) (02/13/17 04:45) Labs Laboratory Tests Test 02/13/17 04:55 White Blood Count 9.8 TH/MM3 Red Blood Count 4.39 MIL/MM3 Hemoglobin 12.5 GM/DL Hematocrit 37.2 % Mean Corpuscular Volume 84.7 FL Mean Corpuscular Hemoglobin 28.5 PG Mean Corpuscular Hemoglobin Concent 33.6 % Red Cell Distribution Width 12.9 % Platelet Count 334 TH/MM3 Mean Platelet Volume 8.3 FL Neutrophils (%) (Auto) 42.1 % Lymphocytes (%) (Auto) 44.6 % Monocytes (%) (Auto) 7.4 % Eosinophils (%) (Auto) 5.2 % Basophils (%) (Auto) 0.7 % Neutrophils # (Auto) 4.1 TH/MM3 Lymphocytes # (Auto) 4.4 TH/MM3 Monocytes # (Auto) 0.7 TH/MM3 Eosinophils # (Auto) 0.5 TH/MM3 Basophils # (Auto) 0.1 TH/MM3 CBC Comment DIFF FINAL Differential Comment Blood Urea Nitrogen 18 MG/DL Creatinine 0.91 MG/DL Random Glucose 89 MG/DL Total Protein 7.3 GM/DL Albumin 3.6 GM/DL Calcium Level 8.6 MG/DL Magnesium Level 1.9 MG/DL Alkaline Phosphatase 50 U/L Aspartate Amino Transf (AST/SGOT) 13 U/L Alanine Aminotransferase (ALT/SGPT) 21 U/L Total Bilirubin 0.3 MG/DL Sodium Level 141 MEQ/L Potassium Level 4.1 MEQ/L Chloride Level 107 MEQ/L Carbon Dioxide Level 27.5 MEQ/L Anion Gap 7 MEQ/L Estimat Glomerular Filtration Rate 70 ML/MIN MDM Medical Decision Making Medical Screen Exam Complete: Yes Emergency Medical Condition: Yes Medical Record Reviewed: Yes Differential Diagnosis SVT, versus atrial fibrillation, versus atrial flutter, versus sinus tachycardia Narrative Course During the course of the patients emergency department visit, the patients history, examination, and differential diagnosis were reviewed with the patient. The patient had IV access obtained and blood work sent for analysis. The patient was placed on a logistics associate with oximetry and blood pressure monitoring. An ECG was done on arrival. The patient's ECG reveals SVT with a heart rate of 230. An attempt was made at vasovagal maneuvers with bearing down , however this did not resolve the SVT. The patient was then started on normal saline IV fluids. The patient was given adenosine 6 mg IV without any response and then 12 mg IV with resolution of her SVT. The patients laboratory studies were reviewed and remarkable for a white count of 9.8, hemoglobin 12.5, platelets 334 with lymphocytes 44.6, eosinophils 5.2, CMP is remarkable for a GFR 70, AST is 13. The patient was instructed to follow-up with her addressograph operator, Dr. Davila for further discussion and recommendations regarding this episode of SVT. The patient is resting comfortably and feels better, is alert and in no distress. The patients results and examination findings were discussed with the patient. The repeat examination is unremarkable and benign. The history, exam, diagnostic testing, and current condition do not suggest any significant pathology to warrant further testing, continued ED treatment, admission, or surgical evaluation at this point. The vital signs have been stable. The patient does not have uncontrollable pain, intractable vomiting, or other significant symptoms. The patient's condition is stable and appropriate for discharge. The patient will pursue further outpatient evaluation with a primary care physician or other designated or consulting physician as indicated in the discharge instructions. The patient expressed understanding and was agreeable with this plan. Diagnosis Primary Impression: SVT (supraventricular tachycardia) Referrals: Radha Davila MD 1 day Patient Instructions: General Instructions, Supraventricular Tachycardia (ED) Additional Instructions: Avoid alcohol and caffeine Med/Other Pt SpecificInfo: No Change to Meds Disposition: 01 DISCHARGE HOME Condition: Stable Iram Vidal MD Feb 13, 2017 05:45
--- NOTE | 2017-02-13 09:56 | EKG ---
Date Performed: 02/13/2017 Time Performed: 04:42:55 PTAGE: 36 years EKG: Sinus rhythm NORMAL ECG PREVIOUS TRACING : 02/13/2017 04.35 DOCTOR: Castillo Ritchie Interpretating Date/Time 02/13/2017 09:54:35
--- NOTE | 2017-02-13 09:58 | EKG ---
Date Performed: 02/13/2017 Time Performed: 04:35:43 PTAGE: 36 years EKG: SUPRAVENTRICULAR TACHYCARDIA MARKED ST DEPRESSION, CONSIDER SUBENDOCARDIAL INJURY ABNORMAL ECG PREVIOUS TRACING : 02/13/2017 04.33 DOCTOR: Castillo Ritchie Interpretating Date/Time 02/13/2017 09:56:47
== END 2017-02-13 06:37 | disposition home or self-care (01) ==
LOC: NEPE 04:24
DX: I47.1 Supraventricular tachycardia (principal); R06.02 Shortness of breath; R07.9 Chest pain, unspecified; R00.2 Palpitations; R00.0 Tachycardia, unspecified; R94.31 Abnormal electrocardiogram [ECG] [EKG]
CPT/HCPCS: 80053; 83735; 85025; 93005; 96374; 99284; J0153

== ENCOUNTER 2017-03-04 05:41 | Day surgery (SDC) | payer OTHER ==
[~2017-03-04] VITALS: Ht 165.1 cm; Wt 65.0 kg
[2017-03-04 06:20] VITALS: BP 109/60; PULSE 66; RESP 18; TEMP 98.4; O2SAT 100
[2017-03-04 06:30] LABS: AUTOMATED NEUTROPHIL # 2.9 TH/MM3 (1.8-7.7); BASOPHIL # 0.1 TH/MM3 (0-0.2); BASOPHIL % 0.9 % (0.0-2.0); EOSINOPHIL # 0.5 TH/MM3 (0-0.4); EOSINOPHIL % 7.4 % (0.0-4.0); HEMATOCRIT 35.4 % (35.0-46.0); HEMOGLOBIN 11.4 GM/DL (11.6-15.3); LYMPHOCYTE # 2.4 TH/MM3 (1.0-4.8); MEAN CELL VOLUME 84.8 FL (80.0-100.0); MEAN CORPUSCULAR HEMOGLOBIN 27.4 PG (27.0-34.0); MEAN CORPUSCULAR HGB CONC 32.2 % (32.0-36.0); MEAN PLATELET VOLUME 7.8 FL (7.0-11.0); MONO % 8.2 % (0.0-8.0); MONOCYTE # 0.5 TH/MM3 (0-0.9); NEUT % 45.5 % (16.0-70.0); PLATELET COUNT 339 TH/MM3 (150-450); RED BLOOD COUNT 4.17 MIL/MM3 (4.00-5.30); RED CELL DISTRIBUTION WIDTH 12.8 % (11.6-17.2); WHITE BLOOD COUNT 6.4 TH/MM3 (4.0-11.0)
[2017-03-04] MEDS ORDERED: INSULIN HUMAN REGULAR 1,000 UNITS/10 ML VIAL SQ PRN (06:30)
[2017-03-04] MEDS ORDERED: CHLORHEXIDINE GLUCONATE 2 % 1 PACK (2 CLOTHS) TOPICAL PRN (06:30)
[2017-03-04] MEDS ORDERED: POVIDONE IODINE 5% (ANTISEPSIS KIT) 4 APPLICATIONS EACH NARE PRN (06:30)
[2017-03-04] MEDS ORDERED: LORazepam 1 MG TAB SL SCH (06:30)
[2017-03-04] MEDS: SODIUM CHLORID 0.9% 500 ML INJ 500 ML IV SCH ×2 (06:30→21:26)
[2017-03-04] MEDS ORDERED: SODIUM CHLORID 0.9% 500 ML IV PRN (06:30)
[2017-03-04] MEDS ORDERED: METOPROLOL TARTRATE 25 MG TAB PO PRN (06:30)
[2017-03-04] MEDS ORDERED: LACTATED RINGER'S 1000 ML IV PRN (06:30)
[2017-03-04 06:49] LABS: PROTHROMBIN TIME - PATIENT 10.6 SEC (9.8-11.6)
[2017-03-04 06:51] LABS: BICARBONATE 27.1 MEQ/L (21.0-32.0); BLOOD UREA NITROGEN 16 MG/DL (7-18); CALCIUM 8.8 MG/DL (8.5-10.1); CHLORIDE 105 MEQ/L (98-107); CREATININE 0.77 MG/DL (0.50-1.00); GLOMERULAR FILTRATION RATE 85 ML/MIN (>89); GLUCOSE,RANDOM 86 MG/DL (74-106); SODIUM (NA) 140 MEQ/L (136-145)
[2017-03-04] MEDS ORDERED: HEPARIN-NS/PF INJ 500 ML ONE (06:57)
[2017-03-04] MEDS ORDERED: KETAMINE HCL 500 MG/5 ML VIAL ONE (07:48)
[2017-03-04] MEDS ORDERED: ACETAMINOPHEN 1000 MG/100 ML 100 ML IV ONE (07:55)
[2017-03-04] MEDS ORDERED: ISOPROTERENOL HCL 1 MG/5 ML AMP ONE (08:11)
[2017-03-04] MEDS ORDERED: PROPOFOL 200 MG/20 ML AMP ONE ×4 (08:54→10:53)
[2017-03-04] MEDS ORDERED: HEPARIN SODIUM - IV 10,000 UNITS/10 ML VIAL ONE (08:55)
--- NOTE | 2017-03-04 10:35 | EKG ---
Date Performed: 03/04/2017 Time Performed: 06:34:58 PTAGE: 36 years EKG: Sinus rhythm Artifact present Compared to prior tracing no significant change Borderline ECG PREVIOUS TRACING : 02/13/2017 04.42 DOCTOR: Kit Carbajal Interpretating Date/Time 03/04/2017 10:33:16
[2017-03-04] MEDS ORDERED: PROTAMINE SULFATE 50 MG/5 ML VIAL ONE (11:12)
[2017-03-04] MEDS ORDERED: oxyCODONE/ACETAMINOPHEN 5 MG/325 MG TAB PO PRN (11:30)
[2017-03-04] MEDS ORDERED: ONDANSETRON HCL 4 MG/2 ML VIAL IV PUSH PRN (11:30)
[2017-03-04] MEDS ORDERED: LIDOCAINE HCL 1% 50 ML VIAL INFIL PRN (11:30)
[2017-03-04] MEDS ORDERED: LORazepam 2 MG/ML VIAL IV PUSH PRN (11:30)
[2017-03-04] MEDS ORDERED: METOCLOPRAMIDE HCL 10 MG/2 ML VIAL IV PUSH PRN (11:30)
[2017-03-04] MEDS ORDERED: SODIUM CHLOR 0.9% 250 ML INJ 250 ML IV PRN (11:30)
[2017-03-04] MEDS ORDERED: ATROPINE SULFATE 1 MG/ML VIAL IV PUSH PRN (11:30)
--- NOTE | 2017-03-04 12:07 | CATHPROC ---
[employer] HIS Report Study Information Study Number Admission Scheduled Start Study Start [id number] Mar 04 2017 5:41AM 03/04/2017 Mar 04 2017 7:37AM [facility] Electrophysiology Study Admit Source Facility Department Other [facility] - Residential Sales Consultant Physician and Clinical Staff Initial Radha Morales V Groove Cutter Liz Snow RCIS Other Elaina Bauer,SWAPNIL Other Anesthesia, HARD TILE SETTER Recorder Sara Caldera BSRSofi Scrub Devika Bundy,RT(R) TECH2 Procedures Performed Procedure Location (Site) Vessel Name Ablation Procedure ICE CATHETER INSERT RA Atruim Equipment Time Newspaper Delivery Driver Description Size Mfg Part Number Used/Scraped NEEDLE, TRANSSEPTAL NRG 98 07:55 [facility] [id number] Used C1 BIOSENSE SCHAFFER CATHETER, CELSIUS, 4MM, D [id number] 08:53 FR 7 Used INC. TYPE QUAD *[id number] [employer]/ EP 07:55 KIT, TRANSDUCER / AFIB [id number] Used PACER [id number] CATHETER, TACTICATH ABLAT BUNDLE 07:55 BUNDLE-[facility]. BIANCA Used 65 BUNDLE *[id number] BUNDLE 93684-[id number] CATHETER, FR7 OPTIMA SPIRAL 07:55 BUNDLE-ST. BIANCA FR7 *[id number]- Used BUNDLE BUNDLE [id number] 07:55 BUNDLE-[employer]. BIANCA CATHETER, JSN, QUAD BUNDLE FR 5 *[id number]- Used BUNDLE [id number] 07:55 BUNDLE-ST. BIANCA CATHETER, JSN, QUAD BUNDLE FR 5 *[id number]- Used BUNDLE [id number] SET, COOL POINT TUBING 07:55 BUNDLE-ST. BIANCA *[id number]- Used BUNDLE BUNDLE SHEATH, FR8.5 STEERABLE SM 07:55 BUNDLE-ST. BIANCA 71CM [id number] Used 71CM BUNDLE COVER, TRANSDUCER CABLE 07:55 [employer] 612-113 Used ACUNAV 07:55 CORDIS/PACER SHEATH, FR10 CLARENCE 11CM FR 10 [id number] Used [id number] 07:55 MEDLINE [employer] PACK, CCL CUSTOM * Used *[id number] 07:55 MEDLINE PACER CARO, LIMB * 2530 *[id number] Used [id number] 07:55 [employer] Engine MEDICAL SHEATH, FR4.5 PRELUDE 11CM FR 4.5 Used [id number] 11:03 [facility] PACER SAFE SHEATH, FR9, 13CM FR 9 [id number] Used [id number] 07:55 NAMIC TUBING, HIGH PRESSURE 48" 48" Used *[id number] 07:55 NAMIC TUBING, HIGH PRESSURE 48" 48" Used *[id number] 07:55 RO MEDICAL BLANKET,WARM AIR CCL * Used *[id number] 539151 08:39 [facility] MEDICAL CATHETER, JSN, QUAD FR 5 Used *[id number] 08:39 [facility] [employer] MEDICAL CATHETER, JSN, QUAD FR 5 Used *[id number] 07:55 [facility] MEDICAL ELECTRODE KIT, SHANNON X SURFACE * [id number] Used [id number] 08:22 [facility] MEDICAL SHEATH, EPS, FR5 FAST CATH FR 5 Used *[id number] 447294 08:22 [facility] MEDICAL SHEATH, EPS, FR5 FAST CATH FR 5 Used *[id number] 609419 08:22 [facility] MEDICAL SHEATH, EPS, FR5 FAST CATH FR 5 Used *[id number] 210846 08:22 [facility] MEDICAL SHEATH, EPS, FR6 FAST CATH FR 6 Used *[id number] 980824 07:55 [facility] MEDICAL SHEATH, EPS, FR8 FAST CATH FR 8 Used *[id number] CATHETER, ACUNAV FR10 ICE [id number] 08:59 FRANKI FR 10 Used (FRANKI) *[id number] [facility] PAD, ELECTROSURGICAL 07:55 * [id number] *[id number] Used SURGICAL GROUNDING (BLUE) History: Current Medications Medication Dosage/Unit Route Frequency Last Date/Time Taken LOPRESSOR History: Allergies Allergy Reaction cephalexin History: Risk Factors Family History of Premature CAD Yes History: Symptoms/Diagnosis Selection Items Palpitations Labs Hgb (g/dl) Hct (%) RBC (MIL/MM3) WBC (l/cumm) Platelets (thousands) 11.60-17.00 35.00-51.00 4.00-5.90 4.00-11.00 150.00-450.00 11.4 35.4 4.1 6.4 339 Glucose (mg/dl) BUN (mg/dl) Creatinine (mg/dl) BUN:Creatinine (1:x) 74.00-106.00 7.00-18.00 0.50-1.30 10.00-20.00 86 16 0.7 22.9 Na (meq/l) K (meq/l) Cl (meq/l) CO2 (mmol/L) Ca (mg/dl) 136.00-145.00 3.50-5.10 98.00-107.00 21.00-32.00 8.50-10.10 140 3.9 105 27.1 8.8 INR (PTT:PT) 0.90-1.10 1 Medication Medication Total Dose (Bolus/Oral) Medication Total Dosage/Unit 1% XYLOCAINE 40 mL HEPARIN 73511 units PROTAMINE 20 mg Medications (Bolus/Oral) Medication Time Given Dosage/Unit Administered By Reason 1% XYLOCAINE 03/04/2017 8:19:49 AM 20 mL Radha Davila As per physicians ve rbal order 20 mL 1% XYLOCAINE given in lab by Radha Davila in Left Groin via Subcutaneous. Ordered by Wagner Davila. Reason: As per physicians verbal order. 1% XYLOCAINE 03/04/2017 8:33:54 AM 20 mL Radha Davila As per physicians ve rbal order 20 mL 1% XYLOCAINE given in lab by Radha Davila in Right Groin via Subcutaneous. Ordered by Mic Davila. Reason: As per physicians verbal order. HEPARIN 03/04/2017 8:59:50 AM 4000 units Radha Davila As per physicians ve rbal order 4000 units HEPARIN given in lab by Radha Davila in Right Antecubital via Peripheral IV. Ordered by Radha Jasmine. Reason: As per physicians verbal order. HEPARIN 03/04/2017 9:12:05 AM 2000 units Anesthesia, HARD TILE SETTER As per physicians v erbal order 2000 units HEPARIN given in lab by Anesthesia, HARD TILE SETTER in Right Antecubital via Peripheral IV. Ordered Radha Harris. Reason: As per physicians verbal order. 03/04/2017 10:16:35 HEPARIN 2000 units Anesthesia, HARD TILE SETTER As per physicians verbal order AM 2000 units HEPARIN given in lab by Anesthesia, HARD TILE SETTER in Right Antecubital via Peripheral IV. Ordered Radha Harris. Reason: As per physicians verbal order. 03/04/2017 10:29:21 HEPARIN 2000 units Anesthesia, HARD TILE SETTER As per physicians verbal order AM 2000 units HEPARIN given in lab by Anesthesia, HARD TILE SETTER in Right Antecubital via Peripheral IV. Ordered b Radha De La Rosa. Reason: As per physicians verbal order. 03/04/2017 11:12:59 PROTAMINE 20 mg Anesthesia, HARD TILE SETTER As per physicians verbal order AM 20 mg PROTAMINE given in lab by Anesthesia, HARD TILE SETTER in Right Antecubital via Peripheral IV. Ordered by Radha Jasmine. Reason: As per physicians verbal order. Medication (Drip) Medication Time Given Dosage/Unit Concentration/Unit Diluent (ml) Solution ISUPREL 03/04/2017 9:48:27 AM 4 mcg/min 1 mg 250 NaCl .9 4 mcg/min ISUPREL given in lab by Anesthesia, HARD TILE SETTER in Right Antecubital via Peripheral IV. Pump/Drip Flow = 60 ml/hr using NaCl .9 with a concentration of 1 mg in 250 ml. Ordered by Radha Davila. Reason: As per physicians verbal order. 03/04/2017 10:44:47 ISUPREL 4 mcg/min 1 mg 250 NaCl .9 AM 4 mcg/min ISUPREL given in lab by Anesthesia, HARD TILE SETTER via Peripheral IV. Pump/Drip Flow = 60 ml/hr using NaCl .9 with a concentration of 1 mg in 250 ml. Ordered by Radha Davila. IV Solutions 03/04/2017 7:56:02 AM 0 mL (IV) NaCl .9 IV Solutions given in lab by Sara Caldera BSRN in Left Antecubital via Peripheral IV. Pump/Drip Flow = 50 ml/hr using NaCl .9. Ordered by Radha Davila. IV Solutions 03/04/2017 7:56:33 AM 0 mL (IV) NaCl .9 IV Solutions given in lab by Sara Caldera BSRN in Right Antecubital via Peripheral IV. Pump/Drip Flow = 50 ml/hr using NaCl .9. Ordered by Radha Davila. Reason: As per physicians verbal order. Initial Case Assessment Cardiovascular HR NIBP Chest Pain 69 139/69 0 Edema Present Skin color Skin None Normal Warm Dry Neurological State Oriented to time-place- Alert Moves all extremities person Respiration - General Respiration Rate SpO2 (%) (B/min) 20 100 Final Case Assessment Cardiovascular HR NIBP Chest Pain 109 105/61 0 Edema Present Skin color Skin None Normal Warm Dry Neurological State Oriented to time-place- Alert Moves all extremities person Respiration - General Respiration Rate SpO2 (%) (B/min) 20 100 Chronological Log Time Study Chronological Log 7:30:00 Patient arrived via Bed. 7:31:00 Patient Name, D.O.B, / Armband Verified By R.N. 7:32:00 Consent signed by the physician and the patient and verified by the Residential Sales Consultant staff. 7:40:17 Pre-op and post- op instructions given; patient acknowledges understanding of instructions. 7:54:47 Verbal Stimulation=2 Physical Stimulation=2 Airway=2 Respiration=2 TOTAL=10. (0=absent, 1=li mited, 2=present) 7:55:01 Anesthesia at bedside. Assumes care of patient. Gino LARA 7:55:09 Presedation assessment performed by Residential Sales Consultant RN. 7:55:17 Patient has been NPO for More than 6Hrs. 7:55:20 Skin Breakdown- none 7:55:30 Patient Warmer Placed on the Table. 7:55:33 Disposable Defibrillator Pads Placed On Patient. 7:55:35 Marcelino Prominences Protected 7:55:40 A # 20 IV was noted in the Antecubital (left). Grade = ~GRADE~ 7:55:53 A # 20 IV was noted in the Antecubital (right). Grade = ~GRADE~ IV Solutions given in lab by Sara Caldera BSRN in Left Antecubital via Peripheral IV. Pump/ Drip Flow = 50 ml/hr 7:56:02 using NaCl .9. Ordered by Radha Davila. IV Solutions given in lab by Sara Caldera BSRN in Right Antecubital via Peripheral IV. Pump /Drip Flow = 50 ml/hr 7:56:33 using NaCl .9. Ordered by Radha Davila. Reason: As per physicians verbal order. 7:56:53 History and physical on the chart or being dictated. Assessment: Initial Case, HR=69 BPM, OIFG=719/69 mmhg, Chest Pain=0, Edema=None, Color=Normal, S kin = Warm, Dry 7:56:55 Neurological: State=Alert, Ox3, GOTTI Respiration: Resp=20 B/min, EmQ5=307 % 7:57:33 Table restraints applied according to hospital policy 7:57:36 Right groin prepped with 2% chlorhexidine, and draped after a 3 min. waiting time. 7:57:40 Left groin prepped with 2% chlorhexidine, and draped after a 3 min. waiting time. 8:06:00 MD notified EP team ready. 8:08:27 Reference ECG taken 8:19:27 Immediate Presedation assesment performed by physician. Time Out. Correct patient, procedure, procedure equipment, site and side verified with physician present. Time 8:19:29 concurred by MD, individual staff and HARD TILE SETTER. Time Out #2 - Consents verified, patient in correct position, all results are labled and display ed, safety precautions 8:19:33 taken, antibiotics administered. Time out concurred by MD, individual staff and HARD TILE SETTER in procedur e 8:19:36 Case Start 20 mL 1% XYLOCAINE given in lab by Radha Davila in Left Groin via Subcutaneous. Ordered by Radha Simpson. 8:19:49 Reason: As per physicians verbal order. 8:20:45 Vascular access was obtained in the Fem Vein (left). 8:20:57 Vascular access was obtained in the Fem Vein (left). 8:20:58 Vascular access was obtained in the Fem Vein (left). 8:21:00 Vascular access was obtained in the Fem Art (left). 8:22:34 A SHEATH, EPS, FR5 FAST CATH FR 5 was advanced into the Fem Vein (left) using the Percutaneo us technique. 8:22:52 A SHEATH, EPS, FR5 FAST CATH FR 5 was advanced into the Fem Vein (left) using the Percutaneo us technique. 8:22:52 A SHEATH, EPS, FR5 FAST CATH FR 5 was advanced into the Fem Vein (left) using the Percutaneo us technique. 8:26:06 A SHEATH, FR4.5 PRELUDE 11CM FR 4.5 was advanced into the Fem Art (left) using the Percutane ous technique. 20 mL 1% XYLOCAINE given in lab by Radha Davila in Right Groin via Subcutaneous. Ordered by Radha Flores. 8:33:54 Reason: As per physicians verbal order. 8:34:06 Vascular access was obtained in the Fem Vein (right). 8:34:10 Vascular access was obtained in the Fem Vein (right). 8:35:00 A SHEATH, EPS, FR8 FAST CATH FR 8 was advanced into the Fem Vein (right) using the Percutane ous technique. 8:36:10 A SHEATH, EPS, FR6 FAST CATH FR 6 was advanced into the Fem Vein (right) using the Percutane ous technique. A CATHETER, JSN, QUAD BUNDLE FR 5 was advanced vis Fem Vein (left) and placed in the CS. Placem ent was visually 8:37:35 confirmed under fluoroscopy. A CATHETER, JSN, QUAD BUNDLE FR 5 was advanced vis Fem Vein (left) and placed in the HIS. Place ment was 8:37:51 visually confirmed under fluoroscopy. A CATHETER, JSN, QUAD FR 5 was advanced vis Fem Vein (left) and placed in the HRA. Placement wa s visually 8:39:09 confirmed under fluoroscopy. A CATHETER, JSN, QUAD FR 5 was advanced vis Fem Vein (left) and placed in the RVA. Placement wa s visually 8:39:21 confirmed under fluoroscopy. 8:41:14 EP Study in progress. 8:54:37 Vascular access was obtained in the Fem Vein (right). 8:54:43 A SHEATH, EPS, FR8 FAST CATH FR 8 was advanced into the Fem Vein (right) using the Percutane ous technique. 8:58:43 Vascular access was obtained in the Fem Vein (right). 8:58:50 A SHEATH, FR10 CLARENCE 11CM FR 10 was advanced into the Fem Vein (right) using the Percutaneo us technique. A SHEATH, FR8.5 STEERABLE SM 71CM BUNDLE 71CM was exchanged in the Fem Vein (right). This was n ecessary in 8:59:00 order for catheter support. 8:59:00 CATHETER, ACUNAV FR10 ICE ([employer] FR 10 Was Postioned. 4000 units HEPARIN given in lab by Radha Davila in Right Antecubital via Peripheral IV. Ordere d by Radha Davila. 8:59:50 Reason: As per physicians verbal order. 9:00:04 [place] needle inserted into Agiles sheath. 9:00:32 Transseptal. 9:07:26 Activated Clotting Time Drawn 9:09:10 Ablation in progress. 9:11:20 ACT (Normal Range 90-180) = 237 2000 units HEPARIN given in lab by Anesthesia, HARD TILE SETTER in Right Antecubital via Peripheral IV. Ord ered by Radha Davila. 9:12:05 Reason: As per physicians verbal order. 9:22:59 Activated Clotting Time Drawn 9:26:48 ACT (Normal Range 90-180) = 274 9:46:58 Activated Clotting Time Drawn 4 mcg/min ISUPREL given in lab by Anesthesia, HARD TILE SETTER in Right Antecubital via Peripheral IV. Pump /Drip Flow = 60 ml/hr 9:48:27 using NaCl .9 with a concentration of 1 mg in 250 ml. Ordered by Radha Davila. Reason: As p er physicians verbal order. 9:50:00 ACT (Normal Range 90-180) = 263 9:58:38 Isuprel gtt off. 9:59:53 Ablation continues. 10:00:00 Isuprel gtt on. 10:11:07 Activated Clotting Time Drawn 10:15:00 Isuprel gtt off. 10:16:25 ACT (Normal Range 90-180) = 248 2000 units HEPARIN given in lab by Anesthesia, HARD TILE SETTER in Right Antecubital via Peripheral IV. Ord ered by Radha Davila. 10:16:35 Reason: As per physicians verbal order. 10:21:26 Ablation stopped. EP study continues. 10:26:50 Ablation continues. 10:27:09 Activated Clotting Time Drawn 10:28:32 ACT (Normal Range 90-180) = 245 2000 units HEPARIN given in lab by Anesthesia, HARD TILE SETTER in Right Antecubital via Peripheral IV. Or dered by Radha Davila. 10:29:21 Reason: As per physicians verbal order. 10:38:25 Activated Clotting Time Drawn 10:42:13 ACT (Normal Range 90-180) = 292 4 mcg/min ISUPREL given in lab by Anesthesia, HARD TILE SETTER via Peripheral IV. Pump/Drip Flow = 60 ml/h r using NaCl .9 with 10:44:47 a concentration of 1 mg in 250 ml. Ordered by Radha Davila. 10:47:00 Isuprel gtt off. 10:57:02 EP study complete. 10:57:[address] Davila. 10:57:49 Ablation procedure performed: SVT. 10:58:05 EP Procedure was performed. Assessment: Final Case, DZ=089 BPM, OYVG=471/61 mmhg, Chest Pain=0, Edema=None, Color=Normal, Skin = Warm, Dry 10:59:22 Neurological: State=Alert, Ox3, GOTTI Respiration: Resp=20 B/min, HtL1=191 % A SAFE SHEATH, FR9, 13CM FR 9 was exchanged in the Fem Vein (right). This was necessary in ord er to achieve 11:00:37 vascular hemostasis. 20 mg PROTAMINE given in lab by Anesthesia, HARD TILE SETTER in Right Antecubital via Peripheral IV. Order ed by Radha Davila. 11:12:59 Reason: As per physicians verbal order. 11:14:14 No case complications noted. 11:14:17 Cine recording checked. 11:20:56 Activated Clotting Time Drawn 11:24:34 ACT (Normal Range 90-180) = 135 Sheaths removed; pressure applied to access sites. Devika and Liz holding pressure for 20 m ins. Hemostasis 11:26:28 achieved and sterile dressings applied. 12:05:40 Case End 12:06:23 [facility] in stable condition. End Study - Contrast Media Used In Study Contrast Total Opened (mL) Total Used (mL) Total Wasted (mL) Unspecified 0 0 0 End Study - Maximum Contrast Load Max Contrast Load (mL) 460.1 End Study - Radiation Exposure Fluoro Time (minutes) 12.6 End Study - Patient Disposition Complications Transferred To Interventional Outcome No Telemetry Bed successful
--- NOTE | 2017-03-04 12:07 | CATHPROC ---
[employer] HIS Report Study Information Study Number Admission Scheduled Start Study Start [id number] Mar 04 2017 5:41AM 03/04/2017 Mar 04 2017 7:37AM [facility] Electrophysiology Study Admit Source Facility Department Other [facility] - Waxing Machine Operator Physician and Clinical Staff Initial Radha Morales Radio Mechanic Apprentice Liz Snow RCIS Other Elaina Bauer,SWAPNIL Other Anesthesia, ASSISTANT TO THE DIRECTOR Recorder Sara Caldera BSRSofi Scrub Devika Bundy,RT(R) TECH2 Procedures Performed Procedure Location (Site) Vessel Name Ablation Procedure ICE CATHETER INSERT RA Atruim Equipment Time Revenue Specialist Description Size Mfg Part Number Used/Scraped NEEDLE, TRANSSEPTAL NRG 98 07:55 [facility] [id number] Used C1 BIOSENSE SCHAFFER CATHETER, CELSIUS, 4MM, D [id number] 08:53 FR 7 Used INC. TYPE QUAD *[id number] [employer]/ EP 07:55 KIT, TRANSDUCER / AFIB [id number] Used PACER [id number] CATHETER, TACTICATH ABLAT BUNDLE 07:55 BUNDLE-ST. BIANCA Used 65 BUNDLE *[id number] BUNDLE [id number] CATHETER, FR7 OPTIMA SPIRAL 07:55 BUNDLE-ST. BIANCA FR7 *[id number]- Used BUNDLE BUNDLE [id number] 07:55 BUNDLE-ST. BIANCA CATHETER, JSN, QUAD BUNDLE FR 5 *[id number]- Used BUNDLE [id number] 07:55 BUNDLE-ST. BIANCA CATHETER, JSN, QUAD BUNDLE FR 5 *[id number]- Used BUNDLE [id number] SET, COOL POINT TUBING 07:55 BUNDLE-ST. BIANCA *[id number]- Used BUNDLE BUNDLE SHEATH, FR8.5 STEERABLE SM 07:55 BUNDLE-ST. BIANCA 71CM [id number] Used 71CM BUNDLE COVER, TRANSDUCER CABLE 07:55 [employer] 612-113 Used ACUNAV 07:55 CORDIS/PACER SHEATH, FR10 CLARENCE 11CM FR 10 [id number] Used [id number] 07:55 [employer] PACK, CCL CUSTOM * Used *[id number] 07:55 MEDLINE PACER CARO, LIMB * 2530 *[id number] Used [id number] 07:55 Q.ME MEDICAL SHEATH, FR4.5 PRELUDE 11CM FR 4.5 Used [id number] 11:03 [facility] PACER SAFE SHEATH, FR9, 13CM FR 9 [id number] Used [id number] 07:55 NAMIC TUBING, HIGH PRESSURE 48" 48" Used *[id number] 07:55 NAMIC TUBING, HIGH PRESSURE 48" 48" Used *[id number] 07:55 RO MEDICAL BLANKET,WARM AIR CCL * Used *[id number] 783842 08:39 [facility] MEDICAL CATHETER, JSN, QUAD FR 5 Used *[id number] 08:39 [facility] MEDICAL CATHETER, JSN, QUAD FR 5 Used *[id number] 07:55 [facility] MEDICAL ELECTRODE KIT, SHANNON X SURFACE * [id number] Used [id number] 08:22 [facility] MEDICAL SHEATH, EPS, FR5 FAST CATH FR 5 Used *[id number] [id number] 08:22 [facility] MEDICAL SHEATH, EPS, FR5 FAST CATH FR 5 Used *[id number] 113831 08:22 [facility] MEDICAL SHEATH, EPS, FR5 FAST CATH FR 5 Used *[id number] 08:22 [facility] MEDICAL SHEATH, EPS, FR6 FAST CATH FR 6 Used *[id number] 445528 07:55 [facility] MEDICAL SHEATH, EPS, FR8 FAST CATH FR 8 Used *[id number] CATHETER, ACUNAV FR10 ICE [id number] 08:59 FRANKI FR 10 Used (FRANKI) *[id number] [facility] PAD, ELECTROSURGICAL 07:55 * [id number] *[id number] Used SURGICAL GROUNDING (BLUE) History: Current Medications Medication Dosage/Unit Route Frequency Last Date/Time Taken LOPRESSOR History: Allergies Allergy Reaction cephalexin History: Risk Factors Family History of Premature CAD Yes History: Symptoms/Diagnosis Selection Items Palpitations Labs Hgb (g/dl) Hct (%) RBC (MIL/MM3) WBC (l/cumm) Platelets (thousands) 11.60-17.00 35.00-51.00 4.00-5.90 4.00-11.00 150.00-450.00 11.4 35.4 4.1 6.4 339 Glucose (mg/dl) BUN (mg/dl) Creatinine (mg/dl) BUN:Creatinine (1:x) 74.00-106.00 7.00-18.00 0.50-1.30 10.00-20.00 86 16 0.7 22.9 Na (meq/l) K (meq/l) Cl (meq/l) CO2 (mmol/L) Ca (mg/dl) 136.00-145.00 3.50-5.10 98.00-107.00 21.00-32.00 8.50-10.10 140 3.9 105 27.1 8.8 INR (PTT:PT) 0.90-1.10 1 Medication Medication Total Dose (Bolus/Oral) Medication Total Dosage/Unit 1% XYLOCAINE 40 mL HEPARIN 14182 units PROTAMINE 20 mg Medications (Bolus/Oral) Medication Time Given Dosage/Unit Administered By Reason 1% XYLOCAINE 03/04/2017 8:19:49 AM 20 mL Radha Davila As per physicians ve rbal order 20 mL 1% XYLOCAINE given in lab by Radha Davila in Left Groin via Subcutaneous. Ordered by Wagner Davila. Reason: As per physicians verbal order. 1% XYLOCAINE 03/04/2017 8:33:54 AM 20 mL Radha Davila As per physicians ve rbal order 20 mL 1% XYLOCAINE given in lab by Radha Davila in Right Groin via Subcutaneous. Ordered by Mic Davila. Reason: As per physicians verbal order. HEPARIN 03/04/2017 8:59:50 AM 4000 units Radha Davila As per physicians ve rbal order 4000 units HEPARIN given in lab by Radha Davila in Right Antecubital via Peripheral IV. Ordered by Radha Jasmine. Reason: As per physicians verbal order. HEPARIN 03/04/2017 9:12:05 AM 2000 units Anesthesia, ASSISTANT TO THE DIRECTOR As per physicians v erbal order 2000 units HEPARIN given in lab by Anesthesia, ASSISTANT TO THE DIRECTOR in Right Antecubital via Peripheral IV. Ordered Radha Harris. Reason: As per physicians verbal order. 03/04/2017 10:16:35 HEPARIN 2000 units Anesthesia, ASSISTANT TO THE DIRECTOR As per physicians verbal order AM 2000 units HEPARIN given in lab by Anesthesia, ASSISTANT TO THE DIRECTOR in Right Antecubital via Peripheral IV. Ordered Radha Harris. Reason: As per physicians verbal order. 03/04/2017 10:29:21 HEPARIN 2000 units Anesthesia, ASSISTANT TO THE DIRECTOR As per physicians verbal order AM 2000 units HEPARIN given in lab by Anesthesia, ASSISTANT TO THE DIRECTOR in Right Antecubital via Peripheral IV. Ordered b Radha De La Rosa. Reason: As per physicians verbal order. 03/04/2017 11:12:59 PROTAMINE 20 mg Anesthesia, ASSISTANT TO THE DIRECTOR As per physicians verbal order AM 20 mg PROTAMINE given in lab by Anesthesia, ASSISTANT TO THE DIRECTOR in Right Antecubital via Peripheral IV. Ordered by Radha Jasmine. Reason: As per physicians verbal order. Medication (Drip) Medication Time Given Dosage/Unit Concentration/Unit Diluent (ml) Solution ISUPREL 03/04/2017 9:48:27 AM 4 mcg/min 1 mg 250 NaCl .9 4 mcg/min ISUPREL given in lab by Anesthesia, ASSISTANT TO THE DIRECTOR in Right Antecubital via Peripheral IV. Pump/Drip Flow = 60 ml/hr using NaCl .9 with a concentration of 1 mg in 250 ml. Ordered by Radha Davila. Reason: As per physicians verbal order. 03/04/2017 10:44:47 ISUPREL 4 mcg/min 1 mg 250 NaCl .9 AM 4 mcg/min ISUPREL given in lab by Anesthesia, ASSISTANT TO THE DIRECTOR via Peripheral IV. Pump/Drip Flow = 60 ml/hr using NaCl .9 with a concentration of 1 mg in 250 ml. Ordered by Radha Davila. IV Solutions 03/04/2017 7:56:02 AM 0 mL (IV) NaCl .9 IV Solutions given in lab by Sara Caldera BSRN in Left Antecubital via Peripheral IV. Pump/Drip Flow = 50 ml/hr using NaCl .9. Ordered by Radha Davila. IV Solutions 03/04/2017 7:56:33 AM 0 mL (IV) NaCl .9 IV Solutions given in lab by Sara Caldera BSRN in Right Antecubital via Peripheral IV. Pump/Drip Flow = 50 ml/hr using NaCl .9. Ordered by Radha Davila. Reason: As per physicians verbal order. Initial Case Assessment Cardiovascular HR NIBP Chest Pain 69 139/69 0 Edema Present Skin color Skin None Normal Warm Dry Neurological State Oriented to time-place- Alert Moves all extremities person Respiration - General Respiration Rate SpO2 (%) (B/min) 20 100 Final Case Assessment Cardiovascular HR NIBP Chest Pain 109 105/61 0 Edema Present Skin color Skin None Normal Warm Dry Neurological State Oriented to time-place- Alert Moves all extremities person Respiration - General Respiration Rate SpO2 (%) (B/min) 20 100 Chronological Log Time Study Chronological Log 7:30:00 Patient arrived via Bed. 7:31:00 Patient Name, D.O.B, / Armband Verified By R.N. 7:32:00 Consent signed by the physician and the patient and verified by the Waxing Machine Operator staff. 7:40:17 Pre-op and post- op instructions given; patient acknowledges understanding of instructions. 7:54:47 Verbal Stimulation=2 Physical Stimulation=2 Airway=2 Respiration=2 TOTAL=10. (0=absent, 1=li mited, 2=present) 7:55:01 Anesthesia at bedside. Assumes care of patient. Gino LARA 7:55:09 Presedation assessment performed by Waxing Machine Operator RN. 7:55:17 Patient has been NPO for More than 6Hrs. 7:55:20 Skin Breakdown- none 7:55:30 Patient Warmer Placed on the Table. 7:55:33 Disposable Defibrillator Pads Placed On Patient. 7:55:35 Marcelino Prominences Protected 7:55:40 A # 20 IV was noted in the Antecubital (left). Grade = ~GRADE~ 7:55:53 A # 20 IV was noted in the Antecubital (right). Grade = ~GRADE~ IV Solutions given in lab by Sara Caldera BSRN in Left Antecubital via Peripheral IV. Pump/ Drip Flow = 50 ml/hr 7:56:02 using NaCl .9. Ordered by Radha Davila. IV Solutions given in lab by Sara Caldera BSRN in Right Antecubital via Peripheral IV. Pump /Drip Flow = 50 ml/hr 7:56:33 using NaCl .9. Ordered by Radha Davila. Reason: As per physicians verbal order. 7:56:53 History and physical on the chart or being dictated. Assessment: Initial Case, HR=69 BPM, PHKW=607/69 mmhg, Chest Pain=0, Edema=None, Color=Normal, S kin = Warm, Dry 7:56:55 Neurological: State=Alert, Ox3, GOTTI Respiration: Resp=20 B/min, IlW7=263 % 7:57:33 Table restraints applied according to hospital policy 7:57:36 Right groin prepped with 2% chlorhexidine, and draped after a 3 min. waiting time. 7:57:40 Left groin prepped with 2% chlorhexidine, and draped after a 3 min. waiting time. 8:06:00 MD notified EP team ready. 8:08:27 Reference ECG taken 8:19:27 Immediate Presedation assesment performed by physician. Time Out. Correct patient, procedure, procedure equipment, site and side verified with physician present. Time 8:19:29 concurred by MD, individual staff and ASSISTANT TO THE DIRECTOR. Time Out #2 - Consents verified, patient in correct position, all results are labled and display ed, safety precautions 8:19:33 taken, antibiotics administered. Time out concurred by MD, individual staff and ASSISTANT TO THE DIRECTOR in procedur e 8:19:36 Case Start 20 mL 1% XYLOCAINE given in lab by Radha Davila in Left Groin via Subcutaneous. Ordered by Radha Simpson. 8:19:49 Reason: As per physicians verbal order. 8:20:45 Vascular access was obtained in the Fem Vein (left). 8:20:57 Vascular access was obtained in the Fem Vein (left). 8:20:58 Vascular access was obtained in the Fem Vein (left). 8:21:00 Vascular access was obtained in the Fem Art (left). 8:22:34 A SHEATH, EPS, FR5 FAST CATH FR 5 was advanced into the Fem Vein (left) using the Percutaneo us technique. 8:22:52 A SHEATH, EPS, FR5 FAST CATH FR 5 was advanced into the Fem Vein (left) using the Percutaneo us technique. 8:22:52 A SHEATH, EPS, FR5 FAST CATH FR 5 was advanced into the Fem Vein (left) using the Percutaneo us technique. 8:26:06 A SHEATH, FR4.5 PRELUDE 11CM FR 4.5 was advanced into the Fem Art (left) using the Percutane ous technique. 20 mL 1% XYLOCAINE given in lab by Radha Davila in Right Groin via Subcutaneous. Ordered by Radha Flores. 8:33:54 Reason: As per physicians verbal order. 8:34:06 Vascular access was obtained in the Fem Vein (right). 8:34:10 Vascular access was obtained in the Fem Vein (right). 8:35:00 A SHEATH, EPS, FR8 FAST CATH FR 8 was advanced into the Fem Vein (right) using the Percutane ous technique. 8:36:10 A SHEATH, EPS, FR6 FAST CATH FR 6 was advanced into the Fem Vein (right) using the Percutane ous technique. A CATHETER, JSN, QUAD BUNDLE FR 5 was advanced vis Fem Vein (left) and placed in the CS. Placem ent was visually 8:37:35 confirmed under fluoroscopy. A CATHETER, JSN, QUAD BUNDLE FR 5 was advanced vis Fem Vein (left) and placed in the HIS. Place ment was 8:37:51 visually confirmed under fluoroscopy. A CATHETER, JSN, QUAD FR 5 was advanced vis Fem Vein (left) and placed in the HRA. Placement wa s visually 8:39:09 confirmed under fluoroscopy. A CATHETER, JSN, QUAD FR 5 was advanced vis Fem Vein (left) and placed in the RVA. Placement wa s visually 8:39:21 confirmed under fluoroscopy. 8:41:14 EP Study in progress. 8:54:37 Vascular access was obtained in the Fem Vein (right). 8:54:43 A SHEATH, EPS, FR8 FAST CATH FR 8 was advanced into the Fem Vein (right) using the Percutane ous technique. 8:58:43 Vascular access was obtained in the Fem Vein (right). 8:58:50 A SHEATH, FR10 CLARENCE 11CM FR 10 was advanced into the Fem Vein (right) using the Percutaneo us technique. A SHEATH, FR8.5 STEERABLE SM 71CM BUNDLE 71CM was exchanged in the Fem Vein (right). This was n ecessary in 8:59:00 order for catheter support. 8:59:00 CATHETER, ACUNAV FR10 ICE (Plum) FR 10 Was Postioned. 4000 units HEPARIN given in lab by Radha Davila in Right Antecubital via Peripheral IV. Ordere d by Radha Davila. 8:59:50 Reason: As per physicians verbal order. 9:00:04 [place] needle inserted into Agiles sheath. 9:00:32 Transseptal. 9:07:26 Activated Clotting Time Drawn 9:09:10 Ablation in progress. 9:11:20 ACT (Normal Range 90-180) = 237 2000 units HEPARIN given in lab by Anesthesia, ASSISTANT TO THE DIRECTOR in Right Antecubital via Peripheral IV. Ord ered by Radha Davila. 9:12:05 Reason: As per physicians verbal order. 9:22:59 Activated Clotting Time Drawn 9:26:48 ACT (Normal Range 90-180) = 274 9:46:58 Activated Clotting Time Drawn 4 mcg/min ISUPREL given in lab by Anesthesia, ASSISTANT TO THE DIRECTOR in Right Antecubital via Peripheral IV. Pump /Drip Flow = 60 ml/hr 9:48:27 using NaCl .9 with a concentration of 1 mg in 250 ml. Ordered by Radha Davila. Reason: As p er physicians verbal order. 9:50:00 ACT (Normal Range 90-180) = 263 9:58:38 Isuprel gtt off. 9:59:53 Ablation continues. 10:00:00 Isuprel gtt on. 10:11:07 Activated Clotting Time Drawn 10:15:00 Isuprel gtt off. 10:16:25 ACT (Normal Range 90-180) = 248 2000 units HEPARIN given in lab by Anesthesia, ASSISTANT TO THE DIRECTOR in Right Antecubital via Peripheral IV. Ord ered by Radha Davila. 10:16:35 Reason: As per physicians verbal order. 10:21:26 Ablation stopped. EP study continues. 10:26:50 Ablation continues. 10:27:09 Activated Clotting Time Drawn 10:28:32 ACT (Normal Range 90-180) = 245 2000 units HEPARIN given in lab by Anesthesia, ASSISTANT TO THE DIRECTOR in Right Antecubital via Peripheral IV. Or dered by Radha Davila. 10:29:21 Reason: As per physicians verbal order. 10:38:25 Activated Clotting Time Drawn 10:42:13 ACT (Normal Range 90-180) = 292 4 mcg/min ISUPREL given in lab by Anesthesia, ASSISTANT TO THE DIRECTOR via Peripheral IV. Pump/Drip Flow = 60 ml/h r using NaCl .9 with 10:44:47 a concentration of 1 mg in 250 ml. Ordered by Radha Davila. 10:47:00 Isuprel gtt off. 10:57:02 EP study complete. 10:57:[address] Davila. 10:57:49 Ablation procedure performed: SVT. 10:58:05 EP Procedure was performed. Assessment: Final Case, IR=175 BPM, KCAQ=485/61 mmhg, Chest Pain=0, Edema=None, Color=Normal, Skin = Warm, Dry 10:59:22 Neurological: State=Alert, Ox3, GOTTI Respiration: Resp=20 B/min, GqN7=958 % A SAFE SHEATH, FR9, 13CM FR 9 was exchanged in the Fem Vein (right). This was necessary in ord er to achieve 11:00:37 vascular hemostasis. 20 mg PROTAMINE given in lab by Anesthesia, ASSISTANT TO THE DIRECTOR in Right Antecubital via Peripheral IV. Order ed by Radha Davila. 11:12:59 Reason: As per physicians verbal order. 11:14:14 No case complications noted. 11:14:17 Cine recording checked. 11:20:56 Activated Clotting Time Drawn 11:24:34 ACT (Normal Range 90-180) = 135 Sheaths removed; pressure applied to access sites. Devika and Liz holding pressure for 20 m ins. Hemostasis 11:26:28 achieved and sterile dressings applied. 12:05:40 Case End 12:06:23 [facility] to [facility] in stable condition. End Study - Contrast Media Used In Study Contrast Total Opened (mL) Total Used (mL) Total Wasted (mL) Unspecified 0 0 0 End Study - Maximum Contrast Load Max Contrast Load (mL) 460.1 End Study - Radiation Exposure Fluoro Time (minutes) 12.6 End Study - Patient Disposition Complications Transferred To Interventional Outcome No Telemetry Bed successful
--- NOTE | 2017-03-04 12:07 | CATHPROC ---
[facility] HIS Report Study Information Study Number Admission Scheduled Start Study Start [id number] Mar 04 2017 5:41AM 03/04/2017 Mar 04 2017 7:37AM [place] Service Electrophysiology Study Admit Source Facility Department Other [facility] - Control Systems Developer Physician and Clinical Staff Initial Radha Morales Configuration Technician Liz Snow RCIS Other Elaina Bauer,SWAPNIL Other Anesthesia, ACT ENGLISH TUTOR Recorder Sara Caldera BSRSofi Scrub Devika Bundy,RT(R) TECH2 Procedures Performed Procedure Location (Site) Vessel Name Ablation Procedure ICE CATHETER INSERT RA Atruim Equipment Time Bench Examiner Description Size Mfg Part Number Used/Scraped NEEDLE, TRANSSEPTAL NRG 98 07:55 [facility] [id number] Used C1 BIOSENSE SCHAFFER CATHETER, CELSIUS, 4MM, D [id number] 08:53 FR 7 Used INC. TYPE QUAD *[id number] [employer]/ EP 07:55 KIT, TRANSDUCER / AFIB [id number] Used PACER [id number] CATHETER, TACTICATH ABLAT BUNDLE 07:55 BUNDLE-[facility]. BIANCA Used 65 BUNDLE *[id number]- BUNDLE [id number] CATHETER, FR7 OPTIMA SPIRAL 07:55 BUNDLE-[facility]. BIANCA FR7 *[id number]- Used BUNDLE BUNDLE [id number] 07:55 BUNDLE-[employer]. BIANCA CATHETER, JSN, QUAD BUNDLE FR 5 *[id number]- Used BUNDLE [id number] 07:55 BUNDLE-[employer]. BIANCA CATHETER, JSN, QUAD BUNDLE FR 5 *[id number]- Used BUNDLE [id number] SET, COOL POINT TUBING 07:55 BUNDLE-ST. BIANCA *[id number]- Used BUNDLE BUNDLE SHEATH, FR8.5 STEERABLE SM 07:55 BUNDLE-ST. BIANCA 71CM [id number] Used 71CM BUNDLE COVER, TRANSDUCER CABLE 07:55 [employer] 612-113 Used ACUNAV 07:55 CORDIS/PACER SHEATH, FR10 CLARENCE 11CM FR 10 [id number] Used [id number] 07:55 MEDLINE [employer] PACK, CCL CUSTOM * Used *[id number] 07:55 MEDLINE PACER CARO, LIMB * 2530 *[id number] Used [id number] 07:55 [employer] MEDICAL SHEATH, FR4.5 PRELUDE 11CM FR 4.5 Used [id number] 11:03 [facility] PACER SAFE SHEATH, FR9, 13CM FR 9 [id number] Used [id number] 07:55 NAMIC TUBING, HIGH PRESSURE 48" 48" Used *[id number] 07:55 NAMIC TUBING, HIGH PRESSURE 48" 48" Used *[id number] 07:55 RO MEDICAL BLANKET,WARM AIR CCL * Used *[id number] 850762 08:39 [facility] MEDICAL CATHETER, JSN, QUAD FR 5 Used *[id number] 005900 08:39 [facility] MEDICAL CATHETER, JSN, QUAD FR 5 Used *[id number] 07:55 [facility] MEDICAL ELECTRODE KIT, SHANNON X SURFACE * [id number] Used [id number] 08:22 [facility] MEDICAL SHEATH, EPS, FR5 FAST CATH FR 5 Used *[id number] 970887 08:22 [facility] MEDICAL SHEATH, EPS, FR5 FAST CATH FR 5 Used *[id number] 326264 08:22 [facility] MEDICAL SHEATH, EPS, FR5 FAST CATH FR 5 Used *[id number] 815032 08:22 [facility] MEDICAL SHEATH, EPS, FR6 FAST CATH FR 6 Used *[id number] 568770 07:55 [facility] MEDICAL SHEATH, EPS, FR8 FAST CATH FR 8 Used *[id number] CATHETER, ACUNAV FR10 ICE [id number] 08:59 FRANKI FR 10 Used (FRANKI) *[id number] [facility] PAD, ELECTROSURGICAL 07:55 * [id number] *[id number] Used SURGICAL GROUNDING (BLUE) History: Current Medications Medication Dosage/Unit Route Frequency Last Date/Time Taken LOPRESSOR History: Allergies Allergy Reaction cephalexin History: Risk Factors Family History of Premature CAD Yes History: Symptoms/Diagnosis Selection Items Palpitations Labs Hgb (g/dl) Hct (%) RBC (MIL/MM3) WBC (l/cumm) Platelets (thousands) 11.60-17.00 35.00-51.00 4.00-5.90 4.00-11.00 150.00-450.00 11.4 35.4 4.1 6.4 339 Glucose (mg/dl) BUN (mg/dl) Creatinine (mg/dl) BUN:Creatinine (1:x) 74.00-106.00 7.00-18.00 0.50-1.30 10.00-20.00 86 16 0.7 22.9 Na (meq/l) K (meq/l) Cl (meq/l) CO2 (mmol/L) Ca (mg/dl) 136.00-145.00 3.50-5.10 98.00-107.00 21.00-32.00 8.50-10.10 140 3.9 105 27.1 8.8 INR (PTT:PT) 0.90-1.10 1 Medication Medication Total Dose (Bolus/Oral) Medication Total Dosage/Unit 1% XYLOCAINE 40 mL HEPARIN 55333 units PROTAMINE 20 mg Medications (Bolus/Oral) Medication Time Given Dosage/Unit Administered By Reason 1% XYLOCAINE 03/04/2017 8:19:49 AM 20 mL Radha Davila As per physicians ve rbal order 20 mL 1% XYLOCAINE given in lab by Radha Davila in Left Groin via Subcutaneous. Ordered by Wagner Davila. Reason: As per physicians verbal order. 1% XYLOCAINE 03/04/2017 8:33:54 AM 20 mL Radha Davila As per physicians ve rbal order 20 mL 1% XYLOCAINE given in lab by Radha Davila in Right Groin via Subcutaneous. Ordered by Mic Davila. Reason: As per physicians verbal order. HEPARIN 03/04/2017 8:59:50 AM 4000 units Radha Davila As per physicians ve rbal order 4000 units HEPARIN given in lab by Radha Davila in Right Antecubital via Peripheral IV. Ordered by Radha Jasmine. Reason: As per physicians verbal order. HEPARIN 03/04/2017 9:12:05 AM 2000 units Anesthesia, ACT ENGLISH TUTOR As per physicians v erbal order 2000 units HEPARIN given in lab by Anesthesia, ACT ENGLISH TUTOR in Right Antecubital via Peripheral IV. Ordered Radha Harris. Reason: As per physicians verbal order. 03/04/2017 10:16:35 HEPARIN 2000 units Anesthesia, ACT ENGLISH TUTOR As per physicians verbal order AM 2000 units HEPARIN given in lab by Anesthesia, ACT ENGLISH TUTOR in Right Antecubital via Peripheral IV. Ordered Radha Harris. Reason: As per physicians verbal order. 03/04/2017 10:29:21 HEPARIN 2000 units Anesthesia, ACT ENGLISH TUTOR As per physicians verbal order AM 2000 units HEPARIN given in lab by Anesthesia, ACT ENGLISH TUTOR in Right Antecubital via Peripheral IV. Ordered b Radha De La Rosa. Reason: As per physicians verbal order. 03/04/2017 11:12:59 PROTAMINE 20 mg Anesthesia, ACT ENGLISH TUTOR As per physicians verbal order AM 20 mg PROTAMINE given in lab by Anesthesia, ACT ENGLISH TUTOR in Right Antecubital via Peripheral IV. Ordered by Radha Jasmine. Reason: As per physicians verbal order. Medication (Drip) Medication Time Given Dosage/Unit Concentration/Unit Diluent (ml) Solution ISUPREL 03/04/2017 9:48:27 AM 4 mcg/min 1 mg 250 NaCl .9 4 mcg/min ISUPREL given in lab by Anesthesia, ACT ENGLISH TUTOR in Right Antecubital via Peripheral IV. Pump/Drip Flow = 60 ml/hr using NaCl .9 with a concentration of 1 mg in 250 ml. Ordered by Radha Davila. Reason: As per physicians verbal order. 03/04/2017 10:44:47 ISUPREL 4 mcg/min 1 mg 250 NaCl .9 AM 4 mcg/min ISUPREL given in lab by Anesthesia, ACT ENGLISH TUTOR via Peripheral IV. Pump/Drip Flow = 60 ml/hr using NaCl .9 with a concentration of 1 mg in 250 ml. Ordered by Radha Davila. IV Solutions 03/04/2017 7:56:02 AM 0 mL (IV) NaCl .9 IV Solutions given in lab by Sara Caldera BSRN in Left Antecubital via Peripheral IV. Pump/Drip Flow = 50 ml/hr using NaCl .9. Ordered by Radha Davila. IV Solutions 03/04/2017 7:56:33 AM 0 mL (IV) NaCl .9 IV Solutions given in lab by Sara Caldera BSRN in Right Antecubital via Peripheral IV. Pump/Drip Flow = 50 ml/hr using NaCl .9. Ordered by Radha Davila. Reason: As per physicians verbal order. Initial Case Assessment Cardiovascular HR NIBP Chest Pain 69 139/69 0 Edema Present Skin color Skin None Normal Warm Dry Neurological State Oriented to time-place- Alert Moves all extremities person Respiration - General Respiration Rate SpO2 (%) (B/min) 20 100 Final Case Assessment Cardiovascular HR NIBP Chest Pain 109 105/61 0 Edema Present Skin color Skin None Normal Warm Dry Neurological State Oriented to time-place- Alert Moves all extremities person Respiration - General Respiration Rate SpO2 (%) (B/min) 20 100 Chronological Log Time Study Chronological Log 7:30:00 Patient arrived via Bed. 7:31:00 Patient Name, D.O.B, / Armband Verified By R.N. 7:32:00 Consent signed by the physician and the patient and verified by the Control Systems Developer staff. 7:40:17 Pre-op and post- op instructions given; patient acknowledges understanding of instructions. 7:54:47 Verbal Stimulation=2 Physical Stimulation=2 Airway=2 Respiration=2 TOTAL=10. (0=absent, 1=li mited, 2=present) 7:55:01 Anesthesia at bedside. Assumes care of patient. Gino LARA 7:55:09 Presedation assessment performed by Control Systems Developer RN. 7:55:17 Patient has been NPO for More than 6Hrs. 7:55:20 Skin Breakdown- none 7:55:30 Patient Warmer Placed on the Table. 7:55:33 Disposable Defibrillator Pads Placed On Patient. 7:55:35 Marcelino Prominences Protected 7:55:40 A # 20 IV was noted in the Antecubital (left). Grade = ~GRADE~ 7:55:53 A # 20 IV was noted in the Antecubital (right). Grade = ~GRADE~ IV Solutions given in lab by Sara Caldera BSRN in Left Antecubital via Peripheral IV. Pump/ Drip Flow = 50 ml/hr 7:56:02 using NaCl .9. Ordered by Radha Davila. IV Solutions given in lab by Sara Caldera BSRN in Right Antecubital via Peripheral IV. Pump /Drip Flow = 50 ml/hr 7:56:33 using NaCl .9. Ordered by Radha Davila. Reason: As per physicians verbal order. 7:56:53 History and physical on the chart or being dictated. Assessment: Initial Case, HR=69 BPM, GOMI=544/69 mmhg, Chest Pain=0, Edema=None, Color=Normal, S kin = Warm, Dry 7:56:55 Neurological: State=Alert, Ox3, GOTTI Respiration: Resp=20 B/min, AuR4=400 % 7:57:33 Table restraints applied according to hospital policy 7:57:36 Right groin prepped with 2% chlorhexidine, and draped after a 3 min. waiting time. 7:57:40 Left groin prepped with 2% chlorhexidine, and draped after a 3 min. waiting time. 8:06:00 MD notified EP team ready. 8:08:27 Reference ECG taken 8:19:27 Immediate Presedation assesment performed by physician. Time Out. Correct patient, procedure, procedure equipment, site and side verified with physician present. Time 8:19:29 concurred by MD, individual staff and ACT ENGLISH TUTOR. Time Out #2 - Consents verified, patient in correct position, all results are labled and display ed, safety precautions 8:19:33 taken, antibiotics administered. Time out concurred by MD, individual staff and ACT ENGLISH TUTOR in procedur e 8:19:36 Case Start 20 mL 1% XYLOCAINE given in lab by Radha Davila in Left Groin via Subcutaneous. Ordered by Radha Simpson. 8:19:49 Reason: As per physicians verbal order. 8:20:45 Vascular access was obtained in the Fem Vein (left). 8:20:57 Vascular access was obtained in the Fem Vein (left). 8:20:58 Vascular access was obtained in the Fem Vein (left). 8:21:00 Vascular access was obtained in the Fem Art (left). 8:22:34 A SHEATH, EPS, FR5 FAST CATH FR 5 was advanced into the Fem Vein (left) using the Percutaneo us technique. 8:22:52 A SHEATH, EPS, FR5 FAST CATH FR 5 was advanced into the Fem Vein (left) using the Percutaneo us technique. 8:22:52 A SHEATH, EPS, FR5 FAST CATH FR 5 was advanced into the Fem Vein (left) using the Percutaneo us technique. 8:26:06 A SHEATH, FR4.5 PRELUDE 11CM FR 4.5 was advanced into the Fem Art (left) using the Percutane ous technique. 20 mL 1% XYLOCAINE given in lab by Radha Davila in Right Groin via Subcutaneous. Ordered by Radha Flores. 8:33:54 Reason: As per physicians verbal order. 8:34:06 Vascular access was obtained in the Fem Vein (right). 8:34:10 Vascular access was obtained in the Fem Vein (right). 8:35:00 A SHEATH, EPS, FR8 FAST CATH FR 8 was advanced into the Fem Vein (right) using the Percutane ous technique. 8:36:10 A SHEATH, EPS, FR6 FAST CATH FR 6 was advanced into the Fem Vein (right) using the Percutane ous technique. A CATHETER, JSN, QUAD BUNDLE FR 5 was advanced vis Fem Vein (left) and placed in the CS. Placem ent was visually 8:37:35 confirmed under fluoroscopy. A CATHETER, JSN, QUAD BUNDLE FR 5 was advanced vis Fem Vein (left) and placed in the HIS. Place ment was 8:37:51 visually confirmed under fluoroscopy. A CATHETER, JSN, QUAD FR 5 was advanced vis Fem Vein (left) and placed in the HRA. Placement wa s visually 8:39:09 confirmed under fluoroscopy. A CATHETER, JSN, QUAD FR 5 was advanced vis Fem Vein (left) and placed in the RVA. Placement wa s visually 8:39:21 confirmed under fluoroscopy. 8:41:14 EP Study in progress. 8:54:37 Vascular access was obtained in the Fem Vein (right). 8:54:43 A SHEATH, EPS, FR8 FAST CATH FR 8 was advanced into the Fem Vein (right) using the Percutane ous technique. 8:58:43 Vascular access was obtained in the Fem Vein (right). 8:58:50 A SHEATH, FR10 CLARENCE 11CM FR 10 was advanced into the Fem Vein (right) using the Percutaneo us technique. A SHEATH, FR8.5 STEERABLE SM 71CM BUNDLE 71CM was exchanged in the Fem Vein (right). This was n ecessary in 8:59:00 order for catheter support. 8:59:00 CATHETER, ACUNAV FR10 ICE (Revetto) FR 10 Was Postioned. 4000 units HEPARIN given in lab by Radha Davila in Right Antecubital via Peripheral IV. Ordere d by Radha Davila. 8:59:50 Reason: As per physicians verbal order. 9:00:04 Kihei needle inserted into Agiles sheath. 9:00:32 Transseptal. 9:07:26 Activated Clotting Time Drawn 9:09:10 Ablation in progress. 9:11:20 ACT (Normal Range 90-180) = 237 2000 units HEPARIN given in lab by Anesthesia, ACT ENGLISH TUTOR in Right Antecubital via Peripheral IV. Ord ered by Radha Davila. 9:12:05 Reason: As per physicians verbal order. 9:22:59 Activated Clotting Time Drawn 9:26:48 ACT (Normal Range 90-180) = 274 9:46:58 Activated Clotting Time Drawn 4 mcg/min ISUPREL given in lab by Anesthesia, ACT ENGLISH TUTOR in Right Antecubital via Peripheral IV. Pump /Drip Flow = 60 ml/hr 9:48:27 using NaCl .9 with a concentration of 1 mg in 250 ml. Ordered by Radha Davila. Reason: As p er physicians verbal order. 9:50:00 ACT (Normal Range 90-180) = 263 9:58:38 Isuprel gtt off. 9:59:53 Ablation continues. 10:00:00 Isuprel gtt on. 10:11:07 Activated Clotting Time Drawn 10:15:00 Isuprel gtt off. 10:16:25 ACT (Normal Range 90-180) = 248 2000 units HEPARIN given in lab by Anesthesia, ACT ENGLISH TUTOR in Right Antecubital via Peripheral IV. Ord ered by Radha Davila. 10:16:35 Reason: As per physicians verbal order. 10:21:26 Ablation stopped. EP study continues. 10:26:50 Ablation continues. 10:27:09 Activated Clotting Time Drawn 10:28:32 ACT (Normal Range 90-180) = 245 2000 units HEPARIN given in lab by Anesthesia, ACT ENGLISH TUTOR in Right Antecubital via Peripheral IV. Or dered by Radha Davila. 10:29:21 Reason: As per physicians verbal order. 10:38:25 Activated Clotting Time Drawn 10:42:13 ACT (Normal Range 90-180) = 292 4 mcg/min ISUPREL given in lab by Anesthesia, ACT ENGLISH TUTOR via Peripheral IV. Pump/Drip Flow = 60 ml/h r using NaCl .9 with 10:44:47 a concentration of 1 mg in 250 ml. Ordered by Radha Davila. 10:47:00 Isuprel gtt off. 10:57:02 EP study complete. 10:57:[address] Davila. 10:57:49 Ablation procedure performed: SVT. 10:58:05 EP Procedure was performed. Assessment: Final Case, BK=484 BPM, NFAW=457/61 mmhg, Chest Pain=0, Edema=None, Color=Normal, Skin = Warm, Dry 10:59:22 Neurological: State=Alert, Ox3, GOTTI Respiration: Resp=20 B/min, FuR2=887 % A SAFE SHEATH, FR9, 13CM FR 9 was exchanged in the Fem Vein (right). This was necessary in ord er to achieve 11:00:37 vascular hemostasis. 20 mg PROTAMINE given in lab by Anesthesia, ACT ENGLISH TUTOR in Right Antecubital via Peripheral IV. Order ed by Radha Davila. 11:12:59 Reason: As per physicians verbal order. 11:14:14 No case complications noted. 11:14:17 Cine recording checked. 11:20:56 Activated Clotting Time Drawn 11:24:34 ACT (Normal Range 90-180) = 135 Sheaths removed; pressure applied to access sites. Devika and Liz holding pressure for 20 m ins. Hemostasis 11:26:28 achieved and sterile dressings applied. 12:05:40 Case End 12:06:23 Patient moved to [facility] and transported to [facility] in stable condition. End Study - Contrast Media Used In Study Contrast Total Opened (mL) Total Used (mL) Total Wasted (mL) Unspecified 0 0 0 End Study - Maximum Contrast Load Max Contrast Load (mL) 460.1 End Study - Radiation Exposure Fluoro Time (minutes) 12.6 End Study - Patient Disposition Complications Transferred To Interventional Outcome No Telemetry Bed successful
[2017-03-04] MEDS ORDERED: BACITRACIN OINT 0.9 GM PKT TOP ONE (12:45)
[2017-03-04] MEDS: ESCITALOPRAM OXALATE 10 MG TAB PO SCH (13:00)
[2017-03-04] MEDS: oxyCODONE/ACETAMINOPHEN 5 MG/325 MG TAB PO PRN ×2 (13:17→20:21)
[2017-03-04 19:00] VITALS: PULSE 68
[2017-03-04 20:00] VITALS: BP 104/62; PULSE 81; PULSE 92; RESP 16; TEMP 98.3; O2SAT 98
[2017-03-04 21:00] VITALS: PULSE 80
[2017-03-04] MEDS: clonazePAM 0.5 MG TAB PO SCH (21:00)
[2017-03-04 22:00] VITALS: PULSE 72
[2017-03-04 23:00] VITALS: BP 101/58; PULSE 68; PULSE 72; RESP 16; TEMP 98.6; O2SAT 100
[2017-03-05] VITALS (17 sets, daily range): BP systolic 95–104; BP diastolic 55–63; PULSE 61–92; RESP 16; TEMP 98.6–99.2; O2SAT 97–100
[2017-03-05] MEDS: oxyCODONE/ACETAMINOPHEN 5 MG/325 MG TAB PO PRN ×2 (01:22→08:30)
[2017-03-05 06:15] LABS: PROTHROMBIN TIME - PATIENT 10.5 SEC (9.8-11.6)
[2017-03-05] MEDS: ESCITALOPRAM OXALATE 10 MG TAB PO SCH (08:30)
[2017-03-05] MEDS: clonazePAM 0.5 MG TAB PO SCH (08:31)
[2017-03-05] MEDS ORDERED: NORETHINDRONE PO SCH (09:00)
[2017-03-05] MEDS ORDERED: ETHINYL ESTRADIOL PO SCH (09:00)
[2017-03-05] MEDS ORDERED: INFLUENZA VIRUS VACCINE (QUADRIVALENT) 0.5 ML SYR IM ONE (10:00)
--- NOTE | 2017-03-05 14:04 | HHI.PR ---
Subjective Remarks Feeling some skipping betas. Objective Vital Signs Date Time Temp Pulse Resp B/P (MAP) Pulse Ox O2 Delivery O2 Flow Rate FiO2 03/05/17 13:01 86 03/05/17 12:07 68 03/05/17 12:00 70 03/05/17 11:00 99.2 75 16 104/63 (77) 98 03/05/17 11:00 78 03/05/17 10:00 70 03/05/17 09:00 74 03/05/17 08:00 84 03/05/17 07:56 98.6 69 16 104/56 (72) 97 03/05/17 07:07 71 03/05/17 06:00 66 03/05/17 05:00 61 03/05/17 04:00 69 03/05/17 04:00 98.6 69 16 95/55 (68) 100 03/05/17 03:00 69 03/05/17 02:00 64 03/05/17 01:00 65 03/05/17 00:00 68 03/04/17 23:00 68 03/04/17 23:00 98.6 72 16 101/58 (72) 100 03/04/17 22:00 72 03/04/17 21:00 80 03/04/17 20:00 98.3 81 16 104/62 (76) 98 03/04/17 20:00 92 03/04/17 19:00 68 I/O 03/04/17 03/04/17 03/04/17 03/05/17 03/05/17 03/05/17 07:00 15:00 23:00 07:00 15:00 23:00 Intake Total 180 ml 480 ml Output Total 450 ml 900 ml Balance -270 ml -420 ml Intake Oral 180 ml 480 ml Output Urine Total 450 ml 900 ml # Bowel Movements 0 Result Diagram: 03/04/17 0610 03/04/17 0610 Imaging Alert, fully oriented Lungs: ventilated Heart: S1, S2 regular, no gallop Abdomen: soft, no mass Ext: no edema Current Medications Medications (Trade) Dose Ordered Sig/Gypsy Route Start Time Stop Time Status Last Admin Lactated Ringer's 1,000 ml @ 30 mls/hr Q24H PRN IV 03/04/17 06:30 03/07/17 06:29 Sodium Chloride 500 ml @ 30 mls/hr [id number] PRN IV 03/04/17 06:30 03/07/17 06:29 (Lopressor) 25 mg FAMILY ASSESSMENT WORKER PRN PO 03/04/17 06:30 03/07/17 06:29 (Betadine 5% Antisepsis Kit) 1 applic FAMILY ASSESSMENT WORKER PRN EACH NARE 03/04/17 06:30 03/07/17 06:29 (Chlorhexidine 2% Cloth) 3 pack FAMILY ASSESSMENT WORKER PRN TOPICAL 03/04/17 06:30 03/07/17 06:29 (NovoLIN R INJ) See Protocol Table ... FAMILY ASSESSMENT WORKER PRN SQ 03/04/17 06:30 03/07/17 06:29 Sodium Chloride 500 ml @ 30 mls/hr [id number] IV 03/04/17 06:30 03/04/17 06:30 (Ativan) 1 mg FAMILY ASSESSMENT WORKER SL 03/04/17 06:30 03/07/17 06:29 (Percocet 5-325 Mg) 1 tab Q4H PRN PO 03/04/17 11:30 03/05/17 08:30 (Percocet 5-325 Mg) 2 tab Q4H PRN PO 03/04/17 11:30 (Atropine Inj) 0.5 mg UNSCH PRN IV PUSH 03/04/17 11:30 (Reglan Inj) 10 mg Q4H PRN IV PUSH 03/04/17 11:30 (Zofran Inj) 4 mg Q4H PRN IV PUSH 03/04/17 11:30 (KlonoPIN) 0.5 mg BID PO 03/04/17 21:00 (Lexapro) 10 mg DAILY PO 03/04/17 13:00 03/05/17 08:30 Patient Own Medication PT OWN MED: LOEST... DAILY PO 03/05/17 09:00 Future Hold Assessment and Plan Problem List: (1) SVT (supraventricular tachycardia) ICD Codes: I47.1 - Supraventricular tachycardia Status: Acute Plan: SP ablation. Doing well No chest pain, no SOB Normal auscultation Complaining about some skipping beats. PACs seen earlier on monitor but none now. Will be DH Follow up as previously scheduled Radha Davila MD Mar 05, 2017 14:04
--- NOTE | 2017-03-05 14:04 | HHI.PR ---
Subjective Remarks Feeling some skipping betas. Objective Vital Signs Date Time Temp Pulse Resp B/P (MAP) Pulse Ox O2 Delivery O2 Flow Rate FiO2 03/05/17 13:01 86 03/05/17 12:07 68 03/05/17 12:00 70 03/05/17 11:00 99.2 75 16 104/63 (77) 98 03/05/17 11:00 78 03/05/17 10:00 70 03/05/17 09:00 74 03/05/17 08:00 84 03/05/17 07:56 98.6 69 16 104/56 (72) 97 03/05/17 07:07 71 03/05/17 06:00 66 03/05/17 05:00 61 03/05/17 04:00 69 03/05/17 04:00 98.6 69 16 95/55 (68) 100 03/05/17 03:00 69 03/05/17 02:00 64 03/05/17 01:00 65 03/05/17 00:00 68 03/04/17 23:00 68 03/04/17 23:00 98.6 72 16 101/58 (72) 100 03/04/17 22:00 72 03/04/17 21:00 80 03/04/17 20:00 98.3 81 16 104/62 (76) 98 03/04/17 20:00 92 03/04/17 19:00 68 I/O 03/04/17 03/04/17 03/04/17 03/05/17 03/05/17 03/05/17 07:00 15:00 23:00 07:00 15:00 23:00 Intake Total 180 ml 480 ml Output Total 450 ml 900 ml Balance -270 ml -420 ml Intake Oral 180 ml 480 ml Output Urine Total 450 ml 900 ml # Bowel Movements 0 Result Diagram: 03/04/17 0610 03/04/17 0610 Imaging Alert, fully oriented Lungs: ventilated Heart: S1, S2 regular, no gallop Abdomen: soft, no mass Ext: no edema Current Medications Medications (Trade) Dose Ordered Sig/Gypsy Route Start Time Stop Time Status Last Admin Lactated Ringer's 1,000 ml @ 30 mls/hr Q24H PRN IV 03/04/17 06:30 03/07/17 06:29 Sodium Chloride 500 ml @ 30 mls/hr [id number] PRN IV 03/04/17 06:30 03/07/17 06:29 (Lopressor) 25 mg SOLAR LAB TECHNICIAN PRN PO 03/04/17 06:30 03/07/17 06:29 (Betadine 5% Antisepsis Kit) 1 applic SOLAR LAB TECHNICIAN PRN EACH NARE 03/04/17 06:30 03/07/17 06:29 (Chlorhexidine 2% Cloth) 3 pack SOLAR LAB TECHNICIAN PRN TOPICAL 03/04/17 06:30 03/07/17 06:29 (NovoLIN R INJ) See Protocol Table ... SOLAR LAB TECHNICIAN PRN SQ 03/04/17 06:30 03/07/17 06:29 Sodium Chloride 500 ml @ 30 mls/hr [id number] IV 03/04/17 06:30 03/04/17 06:30 (Ativan) 1 mg SOLAR LAB TECHNICIAN SL 03/04/17 06:30 03/07/17 06:29 (Percocet 5-325 Mg) 1 tab Q4H PRN PO 03/04/17 11:30 03/05/17 08:30 (Percocet 5-325 Mg) 2 tab Q4H PRN PO 03/04/17 11:30 (Atropine Inj) 0.5 mg UNSCH PRN IV PUSH 03/04/17 11:30 (Reglan Inj) 10 mg Q4H PRN IV PUSH 03/04/17 11:30 (Zofran Inj) 4 mg Q4H PRN IV PUSH 03/04/17 11:30 (KlonoPIN) 0.5 mg BID PO 03/04/17 21:00 (Lexapro) 10 mg DAILY PO 03/04/17 13:00 03/05/17 08:30 Patient Own Medication PT OWN MED: LOEST... DAILY PO 03/05/17 09:00 Future Hold Assessment and Plan Problem List: (1) SVT (supraventricular tachycardia) ICD Codes: I47.1 - Supraventricular tachycardia Status: Acute Plan: SP ablation. Doing well No chest pain, no SOB Normal auscultation Complaining about some skipping beats. PACs seen earlier on monitor but none now. Will be DH Follow up as previously scheduled Radha Davila MD Mar 05, 2017 14:04
--- NOTE | 2017-03-05 14:04 | HHI.PR ---
Subjective Remarks Feeling some skipping betas. Objective Vital Signs Date Time Temp Pulse Resp B/P (MAP) Pulse Ox O2 Delivery O2 Flow Rate FiO2 03/05/17 13:01 86 03/05/17 12:07 68 03/05/17 12:00 70 03/05/17 11:00 99.2 75 16 104/63 (77) 98 03/05/17 11:00 78 03/05/17 10:00 70 03/05/17 09:00 74 03/05/17 08:00 84 03/05/17 07:56 98.6 69 16 104/56 (72) 97 03/05/17 07:07 71 03/05/17 06:00 66 03/05/17 05:00 61 03/05/17 04:00 69 03/05/17 04:00 98.6 69 16 95/55 (68) 100 03/05/17 03:00 69 03/05/17 02:00 64 03/05/17 01:00 65 03/05/17 00:00 68 03/04/17 23:00 68 03/04/17 23:00 98.6 72 16 101/58 (72) 100 03/04/17 22:00 72 03/04/17 21:00 80 03/04/17 20:00 98.3 81 16 104/62 (76) 98 03/04/17 20:00 92 03/04/17 19:00 68 I/O 03/04/17 03/04/17 03/04/17 03/05/17 03/05/17 03/05/17 07:00 15:00 23:00 07:00 15:00 23:00 Intake Total 180 ml 480 ml Output Total 450 ml 900 ml Balance -270 ml -420 ml Intake Oral 180 ml 480 ml Output Urine Total 450 ml 900 ml # Bowel Movements 0 Result Diagram: 03/04/17 0610 03/04/17 0610 Imaging Alert, fully oriented Lungs: ventilated Heart: S1, S2 regular, no gallop Abdomen: soft, no mass Ext: no edema Current Medications Medications (Trade) Dose Ordered Sig/Gypsy Route Start Time Stop Time Status Last Admin Lactated Ringer's 1,000 ml @ 30 mls/hr Q24H PRN IV 03/04/17 06:30 03/07/17 06:29 Sodium Chloride 500 ml @ 30 mls/hr [id number] PRN IV 03/04/17 06:30 03/07/17 06:29 (Lopressor) 25 mg CLINICAL UNIT COORDINATOR PRN PO 03/04/17 06:30 03/07/17 06:29 (Betadine 5% Antisepsis Kit) 1 applic CLINICAL UNIT COORDINATOR PRN EACH NARE 03/04/17 06:30 03/07/17 06:29 (Chlorhexidine 2% Cloth) 3 pack CLINICAL UNIT COORDINATOR PRN TOPICAL 03/04/17 06:30 03/07/17 06:29 (NovoLIN R INJ) See Protocol Table ... CLINICAL UNIT COORDINATOR PRN SQ 03/04/17 06:30 03/07/17 06:29 Sodium Chloride 500 ml @ 30 mls/hr [id number] IV 03/04/17 06:30 03/04/17 06:30 (Ativan) 1 mg CLINICAL UNIT COORDINATOR SL 03/04/17 06:30 03/07/17 06:29 (Percocet 5-325 Mg) 1 tab Q4H PRN PO 03/04/17 11:30 03/05/17 08:30 (Percocet 5-325 Mg) 2 tab Q4H PRN PO 03/04/17 11:30 (Atropine Inj) 0.5 mg UNSCH PRN IV PUSH 03/04/17 11:30 (Reglan Inj) 10 mg Q4H PRN IV PUSH 03/04/17 11:30 (Zofran Inj) 4 mg Q4H PRN IV PUSH 03/04/17 11:30 (KlonoPIN) 0.5 mg BID PO 03/04/17 21:00 (Lexapro) 10 mg DAILY PO 03/04/17 13:00 03/05/17 08:30 Patient Own Medication PT OWN MED: LOEST... DAILY PO 03/05/17 09:00 Future Hold Assessment and Plan Problem List: (1) SVT (supraventricular tachycardia) ICD Codes: I47.1 - Supraventricular tachycardia Status: Acute Plan: SP ablation. Doing well No chest pain, no SOB Normal auscultation Complaining about some skipping beats. PACs seen earlier on monitor but none now. Will be DH Follow up as previously scheduled Radha Davila MD Mar 05, 2017 14:04
--- NOTE | 2017-03-05 16:08 | EKG ---
Date Performed: 03/04/2017 Time Performed: 20:11:50 PTAGE: 36 years EKG: Sinus rhythm Inferior and anterior T wave changes are borderline abnormal Borderline ECG Compared to prior tracin g no significant change PREVIOUS TRACING : 03/04/2017 06.34 DOCTOR: Gaudencio Wayne Interpretating Date/Time 03/05/2017 16:05:49
--- NOTE | 2017-03-05 16:08 | EKG ---
Date Performed: 03/05/2017 Time Performed: 05:58:56 PTAGE: 36 years EKG: Sinus rhythm Normal ECG Compared to prior tracing no significant change PREVIOUS TRACING : 03/04/2017 20.11 DOCTOR: Gaudencio Wayne Interpretating Date/Time 03/05/2017 16:06:00
--- NOTE | 2017-03-05 16:38 | MA ---
cc: MAREK MALONE M.D. 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 Intracardiac echo, repeat electrophysiology study on Isuprel infusion. HISTORY: Mrs. Barbour is a 36-year-old female with recurrent episode of tachyarrhythmia. She has a previous ablation. Subsequently she has tachyarrhythmia with a right rate of heart rate of around 200 beats per minute. This electrophysiology study and ablation was taken. The risks, the nature and the benefit of the procedure are clearly stated to her and mother, the risks include pneumothorax, cardiac perforation, stroke, need for open heart surgery and even . The patient understood and agreed to proceed. PROCEDURE After written informed consent was obtained, the patient was brought to the EP lab where she was prepped and draped in the usual sterile fashion. Conscious sedation was initiated and maintained throughout the procedure by anesthesiologist. Once sedation verified, the right and left inguinal area was anesthetized with 2% Xylocaine. Using modified Seldinger technique, the left femoral vein was cannulated on two occasions, three guide wires were advanced over the wire, three 5-[place] Hemaquet were advanced. Then the left femoral was cannulated on one occasion, one guidewire was advanced over the wire 4-[place] Hemaquet was advanced. Then the right femoral vein was done on two occasions two guidewire were advanced over the wire a six and eight [place] Hemaquet were advanced. Then under fluoroscopic guidance through the 5 and 6 [place] Hemaquet, four 5-[place] Peng curved quadripolar electrophysiology catheters were advanced and was on the his upper right atrium coronary sinus and right ventricular apex. Basic interval was measured. They were within normal limits. At this point atrial pacing protocol was performed atrial pacing protocol course of incremental atrial pacing as well as program stimulation with 110th cycle length and up to one excess stimuli delivered. During incremental atrial pacing supraventricular tachyarrhythmia with cardiac arteries of AV reentrant tachycardia was induced. It was paced terminated. Ventricular pacing protocol was performed. There was VA conduction it was eccentric that times and concentric at other times. Characteristic of a weak pathway. The VA Wenckebach was reached around 400 milliseconds. At this point after mapping I decided to go for a left lateral pathway. Using modified Seldinger technique, the right femoral vein was cannulated on one occasion, one guidewire was advanced over the wire. A 10-[place] Hemaquet was advanced. Through the 10-[place] Hemaquet, Cordis Jones Actonel intracardiac echo was advanced and placed at the right atrium. Multiple view was obtained. There is no pericardial effusion. Pulmonary vein was seen, atrial septal visualized. Then the 8-[place] Hemaquet in the right femoral vein was exchanged for distal septal sheath that was placed all the way to the superior vena cava. Through the sheath a [place] needle was advanced. They then the sheath the dilator and needle were progressively until the foci engaged. Once engaged the needle was advanced RF was delivered for 2-second. I was able to cross into the left atrium. Once the needle crossed the dilator was advanced and dilator crossed the sheath was advanced on the sheath crossed the dilator and the needle were removed. The patient already receive 5000 units of heparin. The goal is to keep an ACT around 250-second during ablation. Then through the sheath a Cordis Jones D curve 4 mm mapping radiofrequency ablation catheter was advanced. Using [employer] endocardial solution mapping system a three-dimensional configuration of the left atrium was obtained. At this point tachyarrhythmia was induced. Left arterial pathway was mapped, ablation was performed. Tachyarrhythmia terminated. V pacing was concentric activation. Then further burn was delivered in the area. Then tachyarrhythmia was reduced again. At that point we have a different arrhythmia, that looked to be coming from the left side but loop also in a typical AV jojo reentrant tachycardia. I did map the right atrium at this point. This is not the anteroseptal pathway. There is clear manifestation of slow pathway. At this point the tricuspid valve annulus was mapped. When the big V and a small trifurcate A ulcer, radiofrequency energy was delivered. Further burn was delivered in the area. Then ventricular pacing protocol was performed. No tachyarrhythmia was induced. Then atrial pacing protocol was in a performed again no tachyarrhythmia was induced. Isuprel was initiated atrial and ventricular pacing protocol was repeated again, no tachyarrhythmia was induced. At that point the intracardiac echo showed no pericardial effusion. Transeptal sheath was replaced by a 9-[place] Hemaquet, the patient going to be transferred to recovery room. That was a very complex case. No incident report. The patient tolerated procedure. The blood loss minimal. 1. Electrocardiogram at baseline the patient was in sinus postprocedure electrocardiogram was unchanged. 2. Basic interval, base cycle length was 895 milliseconds at AH at 76 and HV at 48 milliseconds. 3. Atrial pacing protocol was protocol Wenckebach of the node After ablation at 500 milliseconds. Previous to ablation it could not be reached because the supraventricular tachyarrhythmia was induced. 4. Ventricular pacing protocol there was VA conduction, it was eccentric and concentric post ablation. 5. Tachyarrhythmia AV and IT was induced. Lateral accessory pathway was ablated. Ablation was successful subsequently in a typical AV jojo reentrant tachycardia was ablated. 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 COMMENT/RECOMMENDATIONS The patient going to be transferred to recovery room. He will be observed when stable can be discharged home. MD FLYNN Del Cid/venus /1:51 PM /4:05 PM
--- NOTE | 2017-03-05 16:38 | MA ---
cc: MAREK MALONE M.D. 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 Intracardiac echo, repeat electrophysiology study on Isuprel infusion. HISTORY: Mrs. Barbour is a 36-year-old female with recurrent episode of tachyarrhythmia. She has a previous ablation. Subsequently she has tachyarrhythmia with a right rate of heart rate of around 200 beats per minute. This electrophysiology study and ablation was taken. The risks, the nature and the benefit of the procedure are clearly stated to her and mother, the risks include pneumothorax, cardiac perforation, stroke, need for open heart surgery and even . The patient understood and agreed to proceed. PROCEDURE After written informed consent was obtained, the patient was brought to the EP lab where she was prepped and draped in the usual sterile fashion. Conscious sedation was initiated and maintained throughout the procedure by anesthesiologist. Once sedation verified, the right and left inguinal area was anesthetized with 2% Xylocaine. Using modified Seldinger technique, the left femoral vein was cannulated on two occasions, three guide wires were advanced over the wire, three 5-[place] Hemaquet were advanced. Then the left femoral was cannulated on one occasion, one guidewire was advanced over the wire 4-[place]anese Hemaquet was advanced. Then the right femoral vein was done on two occasions two guidewire were advanced over the wire a six and eight Lebanese Hemaquet were advanced. Then under fluoroscopic guidance through the 5 and 6 Lebanese Hemaquet, four 5-[place]anese Peng curved quadripolar electrophysiology catheters were advanced and was on the his upper right atrium coronary sinus and right ventricular apex. Basic interval was measured. They were within normal limits. At this point atrial pacing protocol was performed atrial pacing protocol course of incremental atrial pacing as well as program stimulation with 110th cycle length and up to one excess stimuli delivered. During incremental atrial pacing supraventricular tachyarrhythmia with cardiac arteries of AV reentrant tachycardia was induced. It was paced terminated. Ventricular pacing protocol was performed. There was VA conduction it was eccentric that times and concentric at other times. Characteristic of a weak pathway. The VA Wenckebach was reached around 400 milliseconds. At this point after mapping I decided to go for a left lateral pathway. Using modified Seldinger technique, the right femoral vein was cannulated on one occasion, one guidewire was advanced over the wire. A 10-[place] Hemaquet was advanced. Through the 10-[place] Hemaquet, Cordis Jones Actonel intracardiac echo was advanced and placed at the right atrium. Multiple view was obtained. There is no pericardial effusion. Pulmonary vein was seen, atrial septal visualized. Then the 8-[place] Hemaquet in the right femoral vein was exchanged for distal septal sheath that was placed all the way to the superior vena cava. Through the sheath a [place] needle was advanced. They then the sheath the dilator and needle were progressively until the foci engaged. Once engaged the needle was advanced RF was delivered for 2-second. I was able to cross into the left atrium. Once the needle crossed the dilator was advanced and dilator crossed the sheath was advanced on the sheath crossed the dilator and the needle were removed. The patient already receive 5000 units of heparin. The goal is to keep an ACT around 250-second during ablation. Then through the sheath a Cordis Jones D curve 4 mm mapping radiofrequency ablation catheter was advanced. Using [employer] endocardial solution mapping system a three-dimensional configuration of the left atrium was obtained. At this point tachyarrhythmia was induced. Left arterial pathway was mapped, ablation was performed. Tachyarrhythmia terminated. V pacing was concentric activation. Then further burn was delivered in the area. Then tachyarrhythmia was reduced again. At that point we have a different arrhythmia, that looked to be coming from the left side but loop also in a typical AV jojo reentrant tachycardia. I did map the right atrium at this point. This is not the anteroseptal pathway. There is clear manifestation of slow pathway. At this point the tricuspid valve annulus was mapped. When the big V and a small trifurcate A ulcer, radiofrequency energy was delivered. Further burn was delivered in the area. Then ventricular pacing protocol was performed. No tachyarrhythmia was induced. Then atrial pacing protocol was in a performed again no tachyarrhythmia was induced. Isuprel was initiated atrial and ventricular pacing protocol was repeated again, no tachyarrhythmia was induced. At that point the intracardiac echo showed no pericardial effusion. Transeptal sheath was replaced by a 9-[place] Hemaquet, the patient going to be transferred to recovery room. That was a very complex case. No incident report. The patient tolerated procedure. The blood loss minimal. 1. Electrocardiogram at baseline the patient was in sinus postprocedure electrocardiogram was unchanged. 2. Basic interval, base cycle length was 895 milliseconds at AH at 76 and HV at 48 milliseconds. 3. Atrial pacing protocol was protocol Wenckebach of the node After ablation at 500 milliseconds. Previous to ablation it could not be reached because the supraventricular tachyarrhythmia was induced. 4. Ventricular pacing protocol there was VA conduction, it was eccentric and concentric post ablation. 5. Tachyarrhythmia AV and IT was induced. Lateral accessory pathway was ablated. Ablation was successful subsequently in a typical AV jojo reentrant tachycardia was ablated. 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 COMMENT/RECOMMENDATIONS The patient going to be transferred to recovery room. He will be observed when stable can be discharged home. MD FLYNN Del Cid/venus /1:51 PM /4:05 PM
--- NOTE | 2017-03-05 16:38 | MA ---
cc: MAREK MALONE M.D. 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 Intracardiac echo, repeat electrophysiology study on Isuprel infusion. HISTORY: Mrs. Barbour is a 36-year-old female with recurrent episode of tachyarrhythmia. She has a previous ablation. Subsequently she has tachyarrhythmia with a right rate of heart rate of around 200 beats per minute. This electrophysiology study and ablation was taken. The risks, the nature and the benefit of the procedure are clearly stated to her and mother, the risks include pneumothorax, cardiac perforation, stroke, need for open heart surgery and even . The patient understood and agreed to proceed. PROCEDURE After written informed consent was obtained, the patient was brought to the EP lab where she was prepped and draped in the usual sterile fashion. Conscious sedation was initiated and maintained throughout the procedure by anesthesiologist. Once sedation verified, the right and left inguinal area was anesthetized with 2% Xylocaine. Using modified Seldinger technique, the left femoral vein was cannulated on two occasions, three guide wires were advanced over the wire, three 5-[place] Hemaquet were advanced. Then the left femoral was cannulated on one occasion, one guidewire was advanced over the wire 4-[place] Hemaquet was advanced. Then the right femoral vein was done on two occasions two guidewire were advanced over the wire a six and eight [place] Hemaquet were advanced. Then under fluoroscopic guidance through the 5 and 6 [place] Hemaquet, four 5-[place] Peng curved quadripolar electrophysiology catheters were advanced and was on the his upper right atrium coronary sinus and right ventricular apex. Basic interval was measured. They were within normal limits. At this point atrial pacing protocol was performed atrial pacing protocol course of incremental atrial pacing as well as program stimulation with 110th cycle length and up to one excess stimuli delivered. During incremental atrial pacing supraventricular tachyarrhythmia with cardiac arteries of AV reentrant tachycardia was induced. It was paced terminated. Ventricular pacing protocol was performed. There was VA conduction it was eccentric that times and concentric at other times. Characteristic of a weak pathway. The VA Wenckebach was reached around 400 milliseconds. At this point after mapping I decided to go for a left lateral pathway. Using modified Seldinger technique, the right femoral vein was cannulated on one occasion, one guidewire was advanced over the wire. A 10-[place] Hemaquet was advanced. Through the 10-[place] Hemaquet, Cordis Jones Actonel intracardiac echo was advanced and placed at the right atrium. Multiple view was obtained. There is no pericardial effusion. Pulmonary vein was seen, atrial septal visualized. Then the 8-[place] Hemaquet in the right femoral vein was exchanged for distal septal sheath that was placed all the way to the superior vena cava. Through the sheath a [place] needle was advanced. They then the sheath the dilator and needle were progressively until the foci engaged. Once engaged the needle was advanced RF was delivered for 2-second. I was able to cross into the left atrium. Once the needle crossed the dilator was advanced and dilator crossed the sheath was advanced on the sheath crossed the dilator and the needle were removed. The patient already receive 5000 units of heparin. The goal is to keep an ACT around 250-second during ablation. Then through the sheath a Cordis Jones D curve 4 mm mapping radiofrequency ablation catheter was advanced. Using [employer] endocardial solution mapping system a three-dimensional configuration of the left atrium was obtained. At this point tachyarrhythmia was induced. Left arterial pathway was mapped, ablation was performed. Tachyarrhythmia terminated. V pacing was concentric activation. Then further burn was delivered in the area. Then tachyarrhythmia was reduced again. At that point we have a different arrhythmia, that looked to be coming from the left side but loop also in a typical AV jojo reentrant tachycardia. I did map the right atrium at this point. This is not the anteroseptal pathway. There is clear manifestation of slow pathway. At this point the tricuspid valve annulus was mapped. When the big V and a small trifurcate A ulcer, radiofrequency energy was delivered. Further burn was delivered in the area. Then ventricular pacing protocol was performed. No tachyarrhythmia was induced. Then atrial pacing protocol was in a performed again no tachyarrhythmia was induced. Isuprel was initiated atrial and ventricular pacing protocol was repeated again, no tachyarrhythmia was induced. At that point the intracardiac echo showed no pericardial effusion. Transeptal sheath was replaced by a 9-[place] Hemaquet, the patient going to be transferred to recovery room. That was a very complex case. No incident report. The patient tolerated procedure. The blood loss minimal. 1. Electrocardiogram at baseline the patient was in sinus postprocedure electrocardiogram was unchanged. 2. Basic interval, base cycle length was 895 milliseconds at AH at 76 and HV at 48 milliseconds. 3. Atrial pacing protocol was protocol Wenckebach of the node After ablation at 500 milliseconds. Previous to ablation it could not be reached because the supraventricular tachyarrhythmia was induced. 4. Ventricular pacing protocol there was VA conduction, it was eccentric and concentric post ablation. 5. Tachyarrhythmia AV and IT was induced. Lateral accessory pathway was ablated. Ablation was successful subsequently in a typical AV jojo reentrant tachycardia was ablated. 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 COMMENT/RECOMMENDATIONS The patient going to be transferred to recovery room. He will be observed when stable can be discharged home. MD FLYNN Del Cid/venus /1:51 PM /4:05 PM
== END 2017-03-05 14:50 | disposition home or self-care (01) ==
LOC: HDOC 05:41 → HDIC 05:42 → HCIN 15:37 → HDOC 03-05 14:50
PROVIDERS: ATTEND Internal Medicine Interventional Cardiology
DX: I47.1 Supraventricular tachycardia (principal); I45.6 Pre-excitation syndrome; I47.2 Ventricular tachycardia; Z23 Encounter for immunization; Z01.818 Encounter for other preprocedural examination; R06.00 Dyspnea, unspecified; R07.9 Chest pain, unspecified
CPT/HCPCS: 80048; 84702; 85002; 85025; 85610; 85730; 86850; 86900; 86901; 90471; 90686; 93005; 93613; 93623; 93653; 93662; C1730; C1731; C1732; C1759; C1766; C2630; J0131; J1644; J2720; J7040; G0008; Q2038